=== PATIENT | male | born 1965 | race Caucasian/White ===

== ENCOUNTER 2018-01-25 15:15 | Outpatient (RCR) | payer OTHER, SELFPAY ==
--- NOTE | 2018-01-24 11:38 | PT.OTN ---
Current Diagnoses Cervicalgia (01/24/18) Transition note: On January 22, 2018 our therapy services consisting of Speech, Occupational, and Physical Therapy transitioned from the [employer] electronic documentation system to a new [employer] electronic documentation system.?? All documentation prior to January 22 can be found under [employer] saved data. From January 22 forward all medical record documentation will be in [employer] 6.1.
--- NOTE | 2018-01-24 16:56 | PT.OTN ---
Current Diagnoses Cervicalgia (01/24/18) Physical Therapy Treatment Note PT-OP-C Subjective Start: 01/24/18 07:33 Freq: Status: Active Protocol: Activity Type Activity Date Activity User E-Sign Co-Sign Detail Recorded Client Recorded Date Recorded By Document 01/24/18 16:49 EA [id number] 01/24/18 16:52 EA 01/24/18 16:49 OP-PT Subjective [Patient Comments] -Patient Comments Patient reports that neck is getting better and last session helped him much. -Patient Reported Progress Improving PT-OP-Q Treatments Start: 01/24/18 07:33 Freq: Status: Active Protocol: Activity Type Activity Date Activity User E-Sign Co-Sign Detail Recorded Client Recorded Date Recorded By Document 01/24/18 15:56 EA [id number] 01/24/18 16:07 EA 01/24/18 15:56 Therapeutic Exercises [Supine Exercises] 2 -Supine Exercise Name Neck flexors, SF, rotators AROm exercises -Side bilateral -Reps/Minutes 12 x 2 sets 1 -Supine Exercise Name Traps, LS, side neck flexors passive stretch -Side bilateral -Reps/Minutes 30 SH x 2 each plane [Prone Exercises] 1 -Prone Exercise Name Cervical retraction AROM -Side bilateral -Reps/Minutes 12 x 2 Manual Therapy Treatment [Soft Tissue Mobilization] 1 -Body Location Post neck muscles, LS, Parathoracis, upper scapular border, Traps -Mobilization Type Myofascial Release Sustained Pressure Trigger Point Release -Intensity/Depth Moderate -Body Position Prone PT-OP-R Modalities Start: 01/24/18 07:33 Freq: Status: Active Protocol: Activity Type Activity Date Activity User E-Sign Co-Sign Detail Recorded Client Recorded Date Recorded By Document 01/24/18 16:54 EA [id number] 01/24/18 16:56 EA 01/24/18 16:54 Electric Stimulation [Electric Stimulation] Interferential Current (IFC) -Body Location Bilat traps and LS -Duration (Minutes) 15 -Contraction Type Normal -Patient Position Supine -Combined With Heat/Cold Hot Pack Hot Pack/Cold Pack [Treatment] Hot Pack -Patient Position Supine -Patient Tolerance Good PT-OP-T Assessment and Plan Start: 01/24/18 07:33 Freq: Status: Active Protocol: Activity Type Activity Date Activity User E-Sign Co-Sign Detail Recorded Client Recorded Date Recorded By Document 01/24/18 16:49 EA [id number] 01/24/18 16:52 PRIMO 01/24/18 16:49 Physical Therapy Assessment [Assessment Summary] -Assessment Patient cervical ROM is increased with no pain during neck mobility. Patient is progressing well. I recommended to cont. AROM neck exercises and educated with neck pre- caution. Physical Therapy Plan [Next Visit Focus/Plan] -Next Visit Plan Cont. with current plan and advanced as tolerated.
--- NOTE | 2018-01-24 16:58 | PT.OTN ---
Current Diagnoses Cervicalgia (01/24/18) Physical Therapy Treatment Note PT-OP-C Subjective Start: 01/24/18 07:33 Freq: Status: Active Protocol: Activity Type Activity Date Activity User E-Sign Co-Sign Detail Recorded Client Recorded Date Recorded By Document 01/24/18 16:49 EA [id number] 01/24/18 16:52 EA 01/24/18 16:49 OP-PT Subjective [Patient Comments] -Patient Comments Patient reports that neck is getting better and last session helped him much. -Patient Reported Progress Improving PT-OP-Q Treatments Start: 01/24/18 07:33 Freq: Status: Active Protocol: Activity Type Activity Date Activity User E-Sign Co-Sign Detail Recorded Client Recorded Date Recorded By Document 01/24/18 15:56 EA [id number] 01/24/18 16:07 EA 01/24/18 15:56 Therapeutic Exercises [Supine Exercises] 2 -Supine Exercise Name Neck flexors, SF, rotators AROm exercises -Side bilateral -Reps/Minutes 12 x 2 sets 1 -Supine Exercise Name Traps, LS, side neck flexors passive stretch -Side bilateral -Reps/Minutes 30 SH x 2 each plane [Prone Exercises] 1 -Prone Exercise Name Cervical retraction AROM -Side bilateral -Reps/Minutes 12 x 2 Manual Therapy Treatment [Soft Tissue Mobilization] 1 -Body Location Post neck muscles, LS, Parathoracis, upper scapular border, Traps -Mobilization Type Myofascial Release Sustained Pressure Trigger Point Release -Intensity/Depth Moderate -Body Position Prone PT-OP-R Modalities Start: 01/24/18 07:33 Freq: Status: Active Protocol: Activity Type Activity Date Activity User E-Sign Co-Sign Detail Recorded Client Recorded Date Recorded By Document 01/24/18 16:54 EA [id number] 01/24/18 16:56 EA 01/24/18 16:54 Electric Stimulation [Electric Stimulation] Interferential Current (IFC) -Body Location Bilat traps and LS -Duration (Minutes) 15 -Contraction Type Normal -Patient Position Supine -Combined With Heat/Cold Hot Pack Hot Pack/Cold Pack [Treatment] Hot Pack -Patient Position Supine -Patient Tolerance Good PT-OP-T Assessment and Plan Start: 01/24/18 07:33 Freq: Status: Active Protocol: Activity Type Activity Date Activity User E-Sign Co-Sign Detail Recorded Client Recorded Date Recorded By Document 01/24/18 16:49 EA [id number] 01/24/18 16:52 PRIMO 01/24/18 16:49 Physical Therapy Assessment [Assessment Summary] -Assessment Patient cervical ROM is increased with no pain during neck mobility. Patient is progressing well. I recommended to cont. AROM neck exercises and educated with neck pre- caution. Physical Therapy Plan [Next Visit Focus/Plan] -Next Visit Plan Cont. with current plan and advanced as tolerated.
--- NOTE | 2018-01-25 16:01 | PT.OTN ---
Current Diagnoses Cervicalgia (01/25/18) Physical Therapy Treatment Note PT-OP-C Subjective Start: 01/24/18 07:33 Freq: Status: Active Protocol: Activity Type Activity Date Activity User E-Sign Co-Sign Detail Recorded Client Recorded Date Recorded By Document 01/25/18 15:15 GGD [email or web address] 01/25/18 16:01 GGD 01/25/18 15:15 OP-PT Subjective [Patient Comments] -Patient Comments Pt states less pain and muscle tightness after last visit. -Patient Reported Progress Improving PT-OP-Q Treatments Start: 01/24/18 07:33 Freq: Status: Active Protocol: Activity Type Activity Date Activity User E-Sign Co-Sign Detail Recorded Client Recorded Date Recorded By Document 01/25/18 15:15 GGD [email or web address] 01/25/18 16:01 GGD 01/25/18 15:15 Therapeutic Exercises [Supine Exercises] 2 -Supine Exercise Name Neck flexors, SF, rotators AROm exercises -Side bilateral -Reps/Minutes 12 x 2 sets 1 -Supine Exercise Name Traps, LS, side neck flexors passive stretch -Side bilateral -Reps/Minutes 30 SH x 2 each plane Manual Therapy Treatment [Soft Tissue Mobilization] 1 -Body Location Post neck muscles, LS, Parathoracis, upper scapular border, Traps -Mobilization Type Myofascial Release Sustained Pressure Trigger Point Release -Intensity/Depth Moderate -Body Position Prone PT-OP-R Modalities Start: 01/24/18 07:33 Freq: Status: Active Protocol: Activity Type Activity Date Activity User E-Sign Co-Sign Detail Recorded Client Recorded Date Recorded By Document 01/25/18 15:15 GGD [email or web address] 01/25/18 16:01 GGD 01/25/18 15:15 Electric Stimulation [Electric Stimulation] Interferential Current (IFC) -Body Location Bilat traps and LS -Duration (Minutes) 15 -Contraction Type Normal -Patient Position Hooklying -Combined With Heat/Cold Hot Pack PT-OP-T Assessment and Plan Start: 01/24/18 07:33 Freq: Status: Active Protocol: Activity Type Activity Date Activity User E-Sign Co-Sign Detail Recorded Client Recorded Date Recorded By Document 01/25/18 15:15 GGD [email or web address] 01/25/18 16:01 GGD 01/25/18 15:15 Physical Therapy Assessment [Assessment Summary] -Assessment Decrease tenderness and muscle tone in upper trap, continue tender to right rhomboid. Physical Therapy Plan [Next Visit Focus/Plan] -Next Visit Plan Progress under current plan. HEP for stretching.
--- NOTE | 2018-04-24 16:52 | PT.OPDS ---
Current Diagnoses Cervicalgia (01/25/18) Provider Visit Care Team Role Provider Type Mark Fuentes MD Attending Provider Physician Family Provider Primary Care Provider Specialty: Family Practice Address: [address] [place] [address], [facility] Email: [email or web address] Discharge Summary PT-OP-C Subjective Start: 01/24/18 07:33 Freq: Status: Active Protocol: Document 04/24/18 16:50 EA (Rec: 04/24/18 16:52 EA [id number]) OP-PT Subjective Patient Comments Patient Comments Patient was not seen since the last appointment. PT-OP-T Assessment and Plan Start: 01/24/18 07:33 Freq: Status: Active Protocol: Document 04/24/18 16:50 EA (Rec: 04/24/18 16:52 EA [id number]) Physical Therapy Plan Discharge Physical Therapy Discharge Reasons No Longer Attending PT Discharge Comments Patient requires Doctor's referral if wants to come back to skilled PT.
== END 2018-05-02 10:10 ==
LOC: PHYS 15:15
PROVIDERS: Family Provider Family Medicine; PCP Family Medicine; Visit Provider Family Medicine
DX: M54.2 Cervicalgia (principal)
CPT/HCPCS: 97014; 97110; 97140; G0283

== ENCOUNTER 2018-09-25 16:41 | Emergency (ER) | payer OTHER, SELFPAY ==
--- NOTE | 2018-09-25 16:54 | ED.CHESTPAIN ---
HPI - Chest Pain General Chief Complaint: Chest Pain Stated Complaint: ABNORMAL EKG,SOB,HEAVINESS IN CHEST Time Seen by Provider: 09/25/18 16:54 Source: patient Mode of arrival: ambulatory Limitations: no limitations History of Present Illness HPI narrative: Patient is a 53-year-old male sent over from the clinic for evaluation of chest heaviness and shortness of breath and an abnormal EKG. Patient states that he has not felt well for several weeks now. He states that he has had a cough that is sometimes productive. Has had subjective fevers. He states he has been evaluated in the past for asthma and has an albuterol inhaler in the past but has never been diagnosed with it. Does have a history of high blood pressure. No chest discomfort but just chest tightness. No history of cardiovascular disease. Related Data Home Medications Medication Instructions Recorded Confirmed Levitra 1 tab PO PRN PRN 09/25/18 09/25/18 Mucinex 1 tab PO PRN PRN 09/25/18 09/25/18 allopurinol 300 mg PO DAILY 09/25/18 09/25/18 fluticasone 2 spray NASAL DAILY 09/25/18 09/25/18 lisinopril 10 mg PO DAILY 09/25/18 09/25/18 propranolol 20 mg PO BID 09/25/18 09/25/18 simvastatin [Zocor] 40 mg PO BEDTIME 09/25/18 09/25/18 Previous Rx's Medication Instructions Recorded hydrocodone 5 mg-acetaminophen 325 1 tab PO Q4-6H PRN #30 tab 01/22/18 mg tablet albuterol sulfate [Ventolin HFA] 2 puff INH Q6HP PRN #8 gm 06/10/18 Allergies Allergy/AdvReac Type Severity Reaction Status Date / Time No Known Drug Allergies Allergy Unknown Verified 09/25/18 16:54 Review of Systems Constitutional Reports fatigue and Reports fever(s) ENT Ears, Nose, Mouth, and Throat: Denies vertigo Cardiovascular Reports chest pain (Heaviness in his chest), Denies syncope, Denies pedal edema, Denies edema, Denies irregular heart rhythm, Reports dyspnea, Reports dyspnea on exertion and Denies slow heart rate Respiratory Reports cough, Reports dyspnea and Reports dyspnea on exertion Gastrointestinal Gastrointestinal: Denies abdominal pain, Denies nausea and Denies vomiting Genitourinary Denies dysuria Musculoskeletal Denies myalgias and Denies arthralgias Integumentary/Breasts Denies rash and Denies wounds Neurologic Denies vertigo and Denies syncope Endocrine Reports fatigue Hematologic/Lymphatic Comments: Not on anticoagulation PFSH Medical History Hypertension (Acute) Surgical History Status post arthroscopy Status post arthroscopy Status post tonsillectomy and adenoidectomy Family History Father Heart disease Hypertension High cholesterol Grandmother Cancer Grandmother Heart disease Hypertension High cholesterol Sister Age: 52 Overweight Sister Age: 43 Overweight Social History Smoking Status: Former smoker Exam Initial Vital Signs Initial Vital Signs: Vital Signs Temperature 97.8 F 09/25/18 16:55 Pulse Rate 70 09/25/18 16:55 Respiratory Rate 16 09/25/18 16:55 Blood Pressure 191/85 H 09/25/18 16:55 Pulse Oximetry 99 09/25/18 16:55 Const General: cooperative, well developed, well groomed and No acute distress Orientation: alert, awake and oriented x3 HENMT Head: normal to inspection and normocephalic Resp Effort & Inspection: normal respiratory effort Auscultation: clear to auscultation bilaterally Cardio Rate: regular rate Rhythm: regular rhythm Heart Sounds: no murmurs Pulses: radial pulses present GI Inspection: non-distended Palpation: soft, No firm and No tender Skin Lesions: no lesions Rashes: no rashes Neuro General: alert, awake and oriented x3 Cognition: normal cognition Speech: speech normal Gait: normal gait Motor: muscle tone normal throughout Extrem General: normal to inspection and capillary refill normal Psych Appearance: grossly normal and well kempt Attitude: cooperative Scores HEART Score Heart Score history: Slightly Suspicious Heart Score EKG: Normal Heart Score Age: 45-64 years old Heart Score risk factors: 1-2 risk factors Heart Score troponin: < or = to normal limit Heart Score Total: 2 Course Orders Ordered: ED Orders 09/25/18 16:47 EKG-12 Lead Routine 09/25/18 17:05 B Type Natriuretic Peptide Stat Basic Metabolic Panel Stat Complete Blood Count AUTO DIFF Stat Troponin I Stat 09/25/18 17:08 XR chest 1V Stat Vital Signs - 8 hr 09/25/18 16:55 09/25/18 17:30 09/25/18 18:00 Temperature 97.8 F Pulse Rate 70 60 52 L Respiratory Rate 16 15 17 Blood Pressure 191/85 H Blood Pressure [Right Arm] 150/74 H 150/76 H Pulse Oximetry 99 97 95 MDM - Chest Pain Lab Data Attestation: I reviewed the patient's lab results. Result diagrams: 09/25/18 17:05 09/25/18 17:05 Lab Results 09/25/18 09/25/18 Range/Units 17:05 17:05 WBC 7.6 (4.5-11.0) X10^3/uL RBC 4.98 (4.5-5.9) X10^6/uL Hgb 14.8 (13.5-17.5) g/dL Hct 43.4 (41-53) % MCV 87.2 (80-100) fL MCH 29.7 (26-34) PG MCHC 34.0 (30-36) % RDW 13.7 (11.6-14.8) % Plt Count 221 (150-400) X10^3/uL Neut % (Auto) 54.3 (50-75) % Lymph % (Auto) 33.3 (25-40) % [place] % (Auto) 9.0 (3-14) % Eos % (Auto) 2.6 (2-4) % Baso % (Auto) 0.8 (0-2) % Neut # (Auto) 4100 (6917-9332) /uL Sodium 139 (137-145) mmol/L Potassium 4.1 (3.4-5.1) mmol/L Chloride 104 (98-107) mmol/L Carbon Dioxide 25 (22-32) mmol/L BUN 14 (9-20) mg/dL Creatinine 0.90 (0.66-1.25) mg/dL Estimated GFR > 60.0 (>60) mL/min BUN/Creatinine Ratio 15.6 (6-22) Glucose 102 H (70-100) mg/dL Calcium 9.0 (8.4-10.2) mg/dL Troponin I < 0.012 (0.01-0.034) ng/mL B-Natriuretic Peptide < 100 (<100) Imaging Data Chest x-ray: Radiologist's impression: PROCEDURE: XR CHEST 1V INDICATIONS: Chest pain TECHNIQUE: One view of the chest was acquired. COMPARISON: [facility], CHEST 2 VIEW, 09/09/2015, 9:36[facility], CR, CHEST 2 VIEW, 09/15/2014, 10:18. FINDINGS: Surgical changes and devices: None. Lungs and pleura: No pleural effusions or pneumothorax. Lungs are difficult to accurately assess due to patient lordotic positioning and prominently reduced inspiratory volume. Mediastinum: Mediastinal contours appear normal. Heart size is normal. Bones and chest wall: No suspicious bony lesions. Overlying soft tissues appear unremarkable. IMPRESSION: Reduced inspiration, lordotic positioning, a definite source of chest pain is not seen but the study is quite limited as noted. Dictated by: Nic Bradshaw M.D. on 09/25/2018 at 17:29 ECG Data Attestation: I personally reviewed and interpreted this ECG as follows: Prior ECG tracings: not available for review Interpretation: Sinus rhythm Frequent PVCs Ventricular rate is 70 Normal QRS Normal QTC Right bundle branch block Comparison EKG dated 11/02/2018 1606 hr Unchanged except no PVCs on this EKG MDM Narrative Medical decision making narrative: Chest x-ray is unremarkable. Troponin negative. This troponin was drawn greater than 6 hr after the onset of his symptoms. Patient is low risk by heart score. Nonischemic EKG. Unsure the exact etiology of his symptoms however does not appear to be cardiac. I informed him he needed to contact his primary care provider to discuss a stress test. He was given return precautions. No signs of pneumonia. Will hold on any antibiotics. He and his was at bedside expressed understanding and agreement with plan Discharge Plan Departure Patient Disposition: Home Clinical Impression: Atypical chest pain Instructions: DI for Atypical Chest Pain Activity Restrictions/Additional Instructions: Recommend you contact your primary care doctor to discuss the indications for a stress test. Return to the emergency department for any new or worsening symptoms Prescriptions: No Action albuterol sulfate [Ventolin HFA] 90 mcg/actuation HFA aerosol inhaler 2 puff INH Q6HP PRNQty: 8 RF: 11 hydrocodone-acetaminophen [[place]] 5-325 mg tablet 1 tab PO Q4-6H PRN (Reason: neck pain) Qty: 30 RF: 0 Levitra 1 tab PO PRN PRN (Reason: Erectile Dysfunction) RF: 0 Mucinex 1 tab PO PRN PRN (Reason: Congestion) RF: 0 simvastatin [Zocor] 40 mg tablet 40 mg PO BEDTIME RF: 0 lisinopril 10 mg tablet 10 mg PO DAILY RF: 0 allopurinol 300 mg tablet 300 mg PO DAILY RF: 0 propranolol 20 MG tablet 20 mg PO BID RF: 0 fluticasone 50 mcg/actuation spray,suspension 2 spray NASAL DAILY RF: 0
[2018-09-25 16:55] VITALS: BP 191/85; PULSE 70; RESP 16; TEMP 36.6; O2SAT 99; BMI 39.3
--- NOTE | 2018-09-25 17:08 | DI.RAD.S_ITS ---
PROCEDURE: XR CHEST 1V INDICATIONS: Chest pain TECHNIQUE: One view of the chest was acquired. COMPARISON: [facility], CHEST 2 VIEW, 09/09/2015, 9:36. [facility], CHEST 2 VIEW, 09/15/2014, 10:18. FINDINGS: Surgical changes and devices: None. Lungs and pleura: No pleural effusions or pneumothorax. Lungs are difficult to accurately assess due to patient lordotic positioning and prominently reduced inspiratory volume. Mediastinum: Mediastinal contours appear normal. Heart size is normal. Bones and chest wall: No suspicious bony lesions. Overlying soft tissues appear unremarkable. IMPRESSION: Reduced inspiration, lordotic positioning, a definite source of chest pain is not seen but the study is quite limited as noted. Dictated by: Nic Bradshaw M.D. on 09/25/2018 at 17:29 Approved by: Nic Bradshaw M.D. on 09/25/2018 at 17:30
[2018-09-25 17:17] LABS: Add Manual Diff / Slide Review NO; Basophils Percent Auto 0.8 % (0-2); Eosinophils Percent Auto 2.6 % (2-4); Hematocrit 43.4 % (41-53); Hemoglobin 14.8 g/dL (13.5-17.5); Lymphocytes Percent Auto 33.3 % (25-40); Mean Corpuscular Hemoglobin 29.7 PG (26-34); Mean Corpuscular Volume 87.2 fL (80-100); Neutrophils Absolute Auto 4100 /uL (1500-7000); Neutrophils Percent Auto 54.3 % (50-75); Platelet Count 221 X10^3/uL (150-400); Red Blood Cell Count 4.98 X10^6/uL (4.5-5.9); Red Cell Distribution Width 13.7 % (11.6-14.8); White Blood Cell Count 7.6 X10^3/uL (4.5-11.0)
[2018-09-25 17:28] LABS: BUN Creatinine Ratio 15.6 (6-22); Blood Urea Nitrogen 14 mg/dL (9-20); Carbon Dioxide 25 mmol/L (22-32); Chloride 104 mmol/L (98-107); Estimated Glomerular Filt Rate > 60.0 mL/min (>60); Glucose 102 mg/dL (70-100); HEMOLYSIS < 15 (0-50); Potassium 4.1 mmol/L (3.4-5.1); Sodium 139 mmol/L (137-145)
[2018-09-25 17:30] VITALS: BP 150/74; PULSE 60; RESP 15; O2SAT 97
[2018-09-25 17:41] LABS: Troponin I < 0.012 ng/mL (0.01-0.034)
[2018-09-25 17:48] LABS: B Type Natriuretic Peptide < 100 (<100)
[2018-09-25 18:00] VITALS: BP 150/76; PULSE 52; RESP 17; O2SAT 95
[2018-09-25 18:30] VITALS: BP 147/81; PULSE 57; RESP 13; O2SAT 97
== END 2018-09-25 18:43 | disposition home or self-care (01) ==
PROVIDERS: Emergency Provider Emergency Medicine; Family Provider Family Medicine; PCP Family Medicine
DX: R07.89 Other chest pain (principal)
CPT/HCPCS: 36591; 71045; 80048; 83880; 84484; 85025; 93005; 99283; 99285

== ENCOUNTER → 2018-10-07 14:45 | Outpatient (CLI) | payer OTHER, SELFPAY ==
--- NOTE | 2018-10-07 14:46 | DI.ECHO.S_ITS ---
[facility] +---------+ : : [address] [place] : : : : [id number] : : : : Phone: [phone] Echocardiogram Report + + :Name: SHARON HARMON Study Date: 10/07/2018 Height: 72 in : :[facility] Exam Location: [facility] Weight: 300 lb : : Gender: Male BSA: 2.5 m2 : :: 1965 Age: 53 yrs BP: 150/80 mmHg: :Reason For Study: SOB : :Ordering Physician: Dr. Flores : :Alfredo Performed By: La Alcantar : :Referring: MAMIE DUMONT : + + Interpretation Summary Normal both left and right ventricle size and function. The ejection fraction is 60-65%. Mildly dilated left atrium. No valvular abnormality. Procedure: A two-dimensional transthoracic echocardiogram with color flow and Doppler was performed. The study quality was technically adequate. There is no prior echocardiogram noted for this patient. The patient was in normal sinus rhythm during the exam. Left Ventricle: The left ventricle is normal in size, wall thickness, and systolic function without any focal wall motion abnormalities. The ejection fraction is estimated to be 60-65%. There are no obvious focal wall motion abnormalities noted but poor endocardial definition reduces the sensitivity for the detection of such. Diastolic parameters suggest probable normal left ventricular diastolic function and normal filling pressures. Right Ventricle: The right ventricle is normal in size and function. Atria: The left atrium is mildly dilated. The right atrium is normal in size. There is no Doppler evidence for an interatrial shunt. Mitral Valve: The mitral valve is normal. There is trace mitral regurgitation. Aortic Valve: The aortic valve is normal in structure and function. No aortic regurgitation is present. Tricuspid Valve: The tricuspid valve is normal. There is mild tricuspid regurgitation. Right ventricular systolic pressure is estimated to be 25 mmHg plus the clinically estimated CVP which cannot be estimated on this exam. Pulmonic Valve: The pulmonic valve is not well seen, but is grossly normal. There is a trace or physiologic amount of pulmonic regurgitation. Great Vessels: The aortic root is normal size. The ascending aorta is normal in size. The aortic arch is normal in size. The pulmonary is not well visualized. The inferior vena cava was not visualized. Pericardium/ Pleura There is no pericardial effusion. There is no pleural effusion. MMode/2D Measurements & Calculations LVIDd: 5.8 cm LVOT diam: 2.4 cm LVIDs: 4.1 cm Ao root diam: 3.2 cm FS: 30.5 % asc Aorta Diam: 3.1 cm EPSS: 0.40 cm Ao Arch Diam (Prox Trans): 2.9 cm IVSd: 0.83 cm LVPWd: 0.92 cm LV naranjo. diameter/BSA (cm/m^2): 2.3 LV sys. diameter/BSA (cm/m^2): 1.6 LA A2 area: 19.6 cm2 RA long axis: 4.7 cm LA A4 area: 21.3 cm2 RA area: 20.3 cm2 LA length (vol): 5.5 cm RA vol: 74.3 ml LA vol: 64.1 ml RA : 29.3 ml/m2 LA vol index: 25.3 ml/m2 IVC diam: 1.9 cm RVD1 (basal): 4.8 cm RVD2 (mid): 4.6 cm TAPSE: 2.3 cm Doppler Measurements & Calculations Ao V2 max: 176.2 cm/sec LVOT Max David: 103.7 cm/sec Ao V2 mean: 129.2 cm/sec LV V1 max P.3 mmHg Ao max P.4 mmHg LV V1 VTI: 19.1 cm Ao mean P.4 mmHg PAMELA(I,D): 2.7 cm2 Ao V2 VTI: 31.5 cm PAMELA(V,D): 2.6 cm2 sev ratio: 0.60 PAMELA indexed to BSA (cm^2/m^2): 1.1 MV E max david: 64.4 cm/sec TR max david: 251.9 cm/sec MV A max david: 58.7 cm/sec TR max P.4 mmHg MV E/A: 1.1 PA V2 max: 77.6 cm/sec Med Peak E' David: 5.2 cm/sec PA V2 mean: 53.4 cm/sec E/E' med: 12.5 PA mean P.3 mmHg Lat Peak E' David: 8.3 cm/sec PA pr(Accel): 34.1 mmHg E/E' lat: 7.7 E/e' average: 10.1 MV dec time: 0.19 sec SV(LVOT): 84.4 ml Electronically signed by: Miki Laguna on Reading Physician:10/07/2018 04:08 PM
== END ==
PROVIDERS: PCP Family Medicine; Visit Provider Family Medicine
DX: I07.1 Rheumatic tricuspid insufficiency (principal); R06.02 Shortness of breath; R07.89 Other chest pain; I45.10 Unspecified right bundle-branch block
CPT/HCPCS: 93306

== ENCOUNTER → 2018-10-24 13:41 | Outpatient (CLI) | payer OTHER, SELFPAY ==
--- NOTE | 2018-10-24 11:00 | DI.NM.S_ITS ---
PATIENT NAME: SHARON HARMON : 1965 EXAM DATE: 10/24/2018 14:25 ORD. DRNile: DR. MAMIE DUMONT M.D. CC: MODALITY: NM PATIENT TYPE: Out CONTRAST MEDIA: STATION ID: [id number] FLUORO TIME: PROCEDURE: NM JAYME PERF SPECT REST & STR Rest and exercise myocardial perfusion SPECT with gated imaging and ejection fraction RADIOPHARMACEUTICAL: 24.8 mCi Tc-99m sestamibi IV at rest and 26.1 mCi Tc- 99m sestamibi IV at peak exercise. A 0-cit-[id number] was performed. INDICATIONS: atypical chest pain TECHNIQUE: Radiopharmaceutical was injected at peak stress test, and also at rest. SPECT images were obtained. SPECT myocardial perfusion images were displayed in short axis, horizontal long axis, and vertical long axis views. Gated images were reviewed using [employer] software. COMPARISON: None. CARDIAC STRESS: A standard Preet treadmill exercise tolerance test was performed by the patient under the supervision of an attending staff. The patient exercised for 7 minutes and 4 seconds; functional aerobic impairment (SAMM) is +20 %. Hemodynamic data: There is hypertensive blood pressure and normal heart rate response to exercise stress. Patient achieved 92% of maximum predicted heart rate at peak exercise. Symptoms: Patient had chest tightness. EKG: No diagnostic EKG changes of ischemia; no ectopy. FINDINGS: Raw data: There is good myocardial labeling by radiotracer. No significant motion artifacts. Ugsw-ii-aemnb ratio is 0.40 (normal is less than 0.38 for sestamibi tracer, and less than 0.50 for thallium tracer). Left ventricle function: Gated images demonstrate normal left ventricle wall thickening. No segmental wall motion abnormality. No transient ischemic dilation ; TID is Continued Report - Page 2 of 2 PATIENT NAME: SHARON HARMON : 1965 EXAM DATE: 10/24/2018 14:25 ORD. : DR. MAMIE DUMONT M.D. CC: MODALITY: CT PATIENT TYPE: Out CONTRAST MEDIA: STATION ID: [id number] FLUORO TIME: 0.67 (normal less than 1.3). The left ventricle resting end-diastolic volume is 136 mL. Left ventricle stress ejection fraction is 71% ; normal values are above 45%. Myocardial perfusion: There is a small defct in the inferior apical wall, both at rest and stress and persists on prone imaging. This is improved on stress and has normal wall motion, conssitent with artefact. Otherwise normal distribution of activity in the left and ventricular myocardium. No other fixed or reversible perfusion defects. IMPRESSION: -Negative perfusion study for ischemia or scar. -Small perfusion defect as described above is consistent with artefact and was described on prior perfusion study on 09/10/2008. -Poor exercise capcacity. -Hypertensive response to exercise. -Chest discomfort with exercise. Dictated by: Sudhakar Cline on 10/25/2018 at 16:29 Approved by: Sudhakar Cline on 10/25/2018 at 16:36
--- NOTE | 2018-10-24 14:53 | P.PCN_ITS ---
Cardiac Stress Test Report Referral & Results Date Patient Seen: 10/24/18 Requesting provider: Mark Fuentes Indication: Chest pain Rest ECG: Right bundle branch block, old Procedure Note: Today following both written and verbal informed consent the patient was exercised according to a standard Preet protocol patient went for a total of 7 min 4 sec achieving a maximum heart rate of 152 maximum systolic blood pressure of 240. This is approximately 10.1 METS. Exercise was terminated at this point because of dyspnea and tightness in the chest and targets were med as well. Patient was also given Cardiolite through a previously started Hep-Lock IV by the nuclear fuels research engineer approximately 1 minute prior to the cessation of exercise. With exercise patient did have some nonspecific ST-T segment changes in the inferior leads as well as laterally that are difficult to interpret in the face of resting right bundle branch block Normal heart rate response to exercise but hypertensive at peak Functional aerobic impairment rates 20% on the sedentary scale Impression: Nonspecific ST-T segment changes with exercise, unclear if ischemic Perfusion imaging will be reported separately Please note: Actual ECG tracings can be found in the PACS system.
== END ==
PROVIDERS: PCP Family Medicine; Visit Provider Family Medicine
DX: R07.89 Other chest pain (principal); I45.10 Unspecified right bundle-branch block
CPT/HCPCS: 78452; 93016; 93017; 93018; A9502

== ENCOUNTER → 2019-01-07 08:56 | Outpatient (CLI) | payer OTHER, SELFPAY ==
[2019-01-07 10:34] LABS: Blood Urea Nitrogen 18 mg/dL (9-20); Carbon Dioxide 27 mmol/L (22-32); Chloride 104 mmol/L (98-107); Cholesterol 166 mg/dL (140-199); Estimated Glomerular Filt Rate > 60.0 mL/min (>60); Glucose 127 mg/dL (70-100); HDL Cholesterol 39 mg/dL (40-60); HEMOLYSIS < 15 (0-50); LDL Cholesterol Calculated 99 mg/dL (<100); Potassium 4.1 mmol/L (3.4-5.1); Sodium 140 mmol/L (137-145); Triglycerides 139 mg/dL (35-150)
== END ==
PROVIDERS: PCP Family Medicine; Visit Provider Family Medicine
DX: E78.2 Mixed hyperlipidemia (principal)
CPT/HCPCS: 36415; 80048; 80061

== ENCOUNTER 2019-02-06 14:57 | Emergency (ER) | payer OTHER, SELFPAY ==
[2019-02-06 15:00] VITALS: BP 191/93; PULSE 64; RESP 20; TEMP 35.9; O2SAT 97; BMI 40.0
--- NOTE | 2019-02-06 15:29 | PC.NURSE ---
Pt requesting pain meds,Provider Raymond alba
--- NOTE | 2019-02-06 15:44 | DI.CT.S_ITS ---
PROCEDURE: CT KIDNEY URETER BLADDER (KUB) INDICATIONS: Sudden R flank and RLQ tenderness TECHNIQUE: Noncontrast 5 mm thick sections acquired from the diaphragms to the symphysis. 5 mm thick coronal and sagittal reformats were then performed. For radiation dose reduction, the following was used: automated exposure control, adjustment of mA and/or kV according to patient size. COMPARISON: [facility], , L-SPINE MINIMUM 4 VIEWS, 02/24/2015, 11:23. FINDINGS: Image quality: Excellent. Lung bases: Lung bases are clear. Heart size is normal. Urinary system: There are bilateral renal stones. There is a 7 mm stone within the right renal pelvis with streaky density 471 HU, probably a uric acid stone. A 3 mm stone is present in the inferior pole of the left renal pelvis. There is a 4 mm stone at the right ureterovesical junction causing is mild right hydronephrosis. Right perinephric stranding and periureteral stranding. Both kidneys are normal in size. Both ureters appear in expected courses. Bladder is semicontracted. Bladder wall thickness is normal; no calcified bladder stones. Other solid organs: There is hepatic steatosis. A 7 mm indeterminate low density nodule in the left hepatic lobe is pulmonary a cyst. Liver is normal in size. Gallbladder is normal. Pancreas is normal in contours. Spleen is normal in size. No adrenal nodules. Peritoneum and bowel: Unenhanced bowel loops demonstrate normal wall thickness and caliber. The appendix is normal. No free fluid or air. Nodes and vessels: No retroperitoneal or mesenteric adenopathy by size criteria. Aorta and inferior vena cava are normal in caliber. Abdominal wall: Tiny fat-containing umbilical hernia is noted. Pelvis: No free pelvic fluid. No inguinal hernias or adenopathy. Bones: No suspicious bony lesions. No vertebral body compression fractures. There is degenerative disc and facet disease in the lower lumbar spine. IMPRESSION: 1. There is a 4 mm obstructive stone at the right ureterovesical junction causing mild right hydronephrosis and hydroureter. 2. Bilateral nonobstructive renal stones. Dictated by: Aggie Mcconnell M.D. on 02/06/2019 at 16:13 Approved by: Aggie Mcconnell M.D. on 02/06/2019 at 16:22
[2019-02-06 15:48] LABS: Add Manual Diff / Slide Review NO; Basophils Absolute Auto 100 /uL (0-100); Basophils Percent Auto 0.6 % (0-2); Eosinophils Absolute Auto 100 /uL (0-450); Eosinophils Percent Auto 1.3 % (2-4); Hematocrit 47.5 % (41-53); Hemoglobin 16.2 g/dL (13.5-17.5); Lymphocytes Absolute Auto 2100 /uL (1100-4500); Lymphocytes Percent Auto 19.5 % (25-40); Mean Corpuscular HGB Conc 34.2 % (30-36); Mean Corpuscular Hemoglobin 29.6 PG (26-34); Mean Corpuscular Volume 86.7 fL (80-100); Monocytes Absolute Auto 800 /uL (0-900); Monocytes Percent Auto 7.4 % (3-14); Neutrophils Absolute Auto 7700 /uL (1500-7000); Neutrophils Percent Auto 71.2 % (50-75); Platelet Count 244 X10^3/uL (150-400); Red Blood Cell Count 5.48 X10^6/uL (4.5-5.9); Red Cell Distribution Width 13.5 % (11.6-14.8); White Blood Cell Count 10.8 X10^3/uL (4.5-11.0)
--- NOTE | 2019-02-06 15:49 | ED_ITS ---
HPI - Male Genitourinary <Jenny ChoudharyJESÚS mckeon - Last Filed: 02/06/19 22:07> General Chief complaint: Urogenital-Male Stated complaint: states pain in groin radiating to his back Time Seen by Provider: 02/06/19 15:16 Source: patient and family Mode of arrival: ambulatory Limitations: no limitations History of Present Illness HPI Narrative: 54yo male with PMH of difficult to control HTN, HLD, prediabetes, and gout presents to the ED with his daughter for sudden onset of 9/10 cramping right lower abdominal pain that radiates to right groin and right flank. Pain started 2 hours ago and is worse with movement and lying down, better with standing. Associated nausea and cold sweats. Denies fevers, chest pain, SOB, orthopnea, vomiting, changes in bowels, leg swelling, dysuria. Denies history of renal calculi or gallstones, consumes multiple energy drinks a day. Biological daughter reports having multiple renal calculi. Related Data Home Medications Medication Instructions Recorded Confirmed Levitra 1 tab PO PRN PRN 09/25/18 02/06/19 Mucinex 1 tab PO PRN PRN 09/25/18 02/06/19 albuterol sulfate [Ventolin HFA] 2 puff INH Q6HP PRN 02/06/19 02/06/19 amlodipine 5 mg PO DAILY 02/06/19 02/06/19 losartan 50 mg PO BID 02/06/19 02/06/19 Previous Rx's Medication Instructions Recorded allopurinol 300 mg tablet 300 mg PO DAILY #90 tab 01/09/19 atorvastatin 20 mg tablet 20 mg PO DAILY #90 tab 01/09/19 beclomethasone diprop 80 1 puff INHALATION Q12H #10.6 gram 01/09/19 mcg/actuation HFA breath activated aerosol fluticasone propionate 50 2 spray NASAL DAILY #9.9 gram 01/09/19 mcg/actuation nasal spray,suspension propranolol 20 mg tablet 20 mg PO BID #180 tab 01/09/19 hydrocodone-acetaminophen [[place]] 1 tab PO Q4-6H PRN #10 tab 02/06/19 ondansetron 4 mg PO Q6-8H PRN #10 tab 02/06/19 tamsulosin 0.4 mg PO DAILY #10 cap 02/06/19 Allergies Allergy/AdvReac Type Severity Reaction Status Date / Time No Known Drug Allergies Allergy Unknown Verified 01/09/19 11:06 Review of Systems <JESÚS Schreiber - Last Filed: 02/06/19 22:07> Constitutional Denies anorexia, Denies body ache(s), Denies chills, Reports excessive sweating, Denies fatigue and Denies fever(s) Eyes Denies change in vision and Denies eye discharge ENT Ears, Nose, Mouth, and Throat: Denies neck pain and Denies sore throat Cardiovascular Denies chest pain, Denies irregular heart rhythm, Denies lightheadedness, Denies palpitations, Denies dyspnea, Denies dyspnea on exertion and Denies orthopnea Respiratory Denies cough, Denies dyspnea, Denies dyspnea on exertion and Denies wheezing Gastrointestinal Gastrointestinal: Denies abdominal pain, Denies change in bowel habits, Denies heartburn, Denies diarrhea, Denies loose stools, Reports nausea and Denies vomiting Genitourinary Denies hematuria, Denies difficulty urinating, Reports flank pain (Right radiating to groin), Denies penile discharge, Denies scrotal swelling, Denies urinary frequency, Denies urinary hesitancy, Denies urinary incontinence and Denies urinary urgency Musculoskeletal Denies myalgias and Denies neck pain Integumentary/Breasts Denies pruritus, Denies erythema, Denies rash, Denies skin pain, Denies wounds and Denies jaundice Neurologic Denies confusion Psychiatric Denies anxiety, Denies confusion, Denies depression, Denies homicidal ideation and Denies suicidal ideation Endocrine Reports excessive sweating, Denies fatigue and Denies palpitations Hematologic/Lymphatic Denies easy bruising Allergic/Immunologic Denies wheezing PFSH <JESÚS Schreiber - Last Filed: 02/06/19 22:07> Medical History (Updated 02/06/19 @ 18:43 by JESÚS Schreiber) Gout (Chronic) Hypercholesterolemia (Chronic) Hypertension (Chronic) Surgical History Status post arthroscopy Status post arthroscopy Status post tonsillectomy and adenoidectomy Family History Father Heart disease Hypertension High cholesterol Grandmother Cancer Grandmother Heart disease Hypertension High cholesterol Sister Age: 53 Overweight Sister Age: 44 Overweight Social History Smoking Status: Former smoker Family History Father Heart disease Hypertension High cholesterol Grandmother Cancer Grandmother Heart disease Hypertension High cholesterol Sister Age: 53 Overweight Sister Age: 44 Overweight Social History Smoking Status: Former smoker Exam <JESÚS Schreiber - Last Filed: 02/06/19 22:07> Initial Vital Signs Initial Vital Signs: Vital Signs Temperature 96.7 F L 02/06/19 15:00 Pulse Rate 64 02/06/19 15:00 Respiratory Rate 20 02/06/19 15:00 Blood Pressure 191/93 H 02/06/19 15:00 Pulse Oximetry 97 02/06/19 15:00 Const General: cooperative, well developed and well groomed Nutritional Appearance: well nourished Orientation: alert, awake, oriented x3 and not confused [facility] Head: normocephalic and atraumatic Nose: external nose normal and No nasal discharge Face and sinus: sinuses nontender, face symmetric, no sinus tenderness and No dry mucous membranes Mouth: oral mucosae normal and moist mucous membranes Teeth and gingiva: dentition normal Throat: tonsils normal and uvula midline Eyes General: appearance normal, both eyes and all related structures Eyelids: eyelids normal Conjunctivae: conjunctivae normal Sclera: sclerae normal Neck Neck: normal visual inspection and trachea midline Lymphatic: No lymphedema Chest Chest: normal inspection of the chest Resp Effort & Inspection: normal respiratory effort, able to speak in complete sentences, no cough, no respiratory distress and no use of accessory muscles Auscultation: clear to auscultation bilaterally, no rales, no rhonchi and no wheezes Cardio Rate: regular rate Rhythm: regular rhythm Heart Sounds: S1 normal, S2 normal, no click, no gallops, no murmurs and no rubs Pulses: normal peripheral pulses GI Inspection: normal to inspection, non-distended and obesity Palpation: soft (Slight tenderness is deep RLQ palpation), no hepatosplenomegaly, No guarding, No hepatomegaly, No mass, No pulsatile mass, No tender and No ascites Auscultation: normal bowel sounds General: CVA tenderness (Slight right CVA tenderness) Back/Spine/Pelvis Back: CVA tenderness right Cervical Spine: cervical ROM normal and No pain with cervical ROM Thoracic/Lumbar Spine: thoracic and lumbar spine normal to inspection Skin General: no rashes or lesions noted, No jaundice and No petechiae Neuro General: alert, oriented x3, gait normal and no focal motor deficits Speech: speech normal Extrem General: full ROM, no clubbing, cyanosis or edema, no pedal edema and no calf tenderness Psych Appearance: well kempt Mental Status: mental status grossly normal Attitude: cooperative Thought Content: normal and suicidality Judgment: judgment good <Dalia Torres DO - Last Filed: 02/07/19 08:33> Initial Vital Signs Initial Vital Signs: Vital Signs Temperature 96.7 F L 02/06/19 15:00 Pulse Rate 64 02/06/19 15:00 Respiratory Rate 20 02/06/19 15:00 Blood Pressure 191/93 H 02/06/19 15:00 Pulse Oximetry 97 02/06/19 15:00 Course <JESÚS Schreiber - Last Filed: 02/06/19 22:07> Course Narrative: Pain controlled with toradol and NS, down to 3/10. Patient able to urinate without discomfort. Orders Ordered: Discontinued Medications Sodium Chloride (Normal Saline 0.9%) 1,000 mls @ 150 mls/hr IV CONT CRISTINO Sodium Chloride (Normal Saline 0.9%) 1,000 mls @ 1,000 mls/hr IV BOLUS ONE Stop: 02/06/19 16:41 Last Infusion: 02/06/19 17:35 Dose: 0 mls/hr Admin: 02/06/19 15:59 Dose: 1,000 mls/hr Ketorolac Tromethamine (Toradol) 30 mg IV NOW ONE Stop: 02/06/19 15:40 Last Admin: 02/06/19 15:58 Dose: 30 mg Ondansetron HCl (Zofran) 4 mg IV NOW ONE Stop: 02/06/19 15:40 Last Admin: 02/06/19 15:58 Dose: 4 mg Vital Signs - 8 hr 02/06/19 15:00 02/06/19 17:00 02/06/19 17:38 Temperature 96.7 F L Pulse Rate 64 76 73 Respiratory Rate 20 18 18 Blood Pressure 191/93 H Blood Pressure [Right Arm] 148/76 H 144/72 H Pulse Oximetry 97 96 99 <Dalia Torres DO - Last Filed: 02/07/19 08:33> Orders Ordered: Discontinued Medications Sodium Chloride (Normal Saline 0.9%) 1,000 mls @ 150 mls/hr IV CONT CRISTINO Sodium Chloride (Normal Saline 0.9%) 1,000 mls @ 1,000 mls/hr IV BOLUS ONE Stop: 02/06/19 16:41 Last Infusion: 02/06/19 17:35 Dose: 0 mls/hr Admin: 02/06/19 15:59 Dose: 1,000 mls/hr Ketorolac Tromethamine (Toradol) 30 mg IV NOW ONE Stop: 02/06/19 15:40 Last Admin: 02/06/19 15:58 Dose: 30 mg Ondansetron HCl (Zofran) 4 mg IV NOW ONE Stop: 02/06/19 15:40 Last Admin: 02/06/19 15:58 Dose: 4 mg Vital Signs - 8 hr 02/06/19 15:00 02/06/19 17:00 02/06/19 17:38 Temperature 96.7 F L Pulse Rate 64 76 73 Respiratory Rate 20 18 18 Blood Pressure 191/93 H Blood Pressure [Right Arm] 148/76 H 144/72 H Pulse Oximetry 97 96 99 MDM - Male Genitourinary <JESÚS Schreiber - Last Filed: 02/06/19 22:07> Differential Diagnosis Likely other Medical Records Attestation: I reviewed the patient's medical records. Lab Data Attestation: I reviewed the patient's lab results. No evidence of infection or renal failure. Result diagrams: 02/06/19 15:40 02/06/19 15:40 Lab Results 02/06/19 02/06/19 02/06/19 Range/Units 15:35 15:40 15:40 WBC 10.8 (4.5-11.0) X10^3/uL RBC 5.48 (4.5-5.9) X10^6/uL Hgb 16.2 (13.5-17.5) g/dL Hct 47.5 (41-53) % MCV 86.7 (80-100) fL MCH 29.6 (26-34) PG MCHC 34.2 (30-36) % RDW 13.5 (11.6-14.8) % Plt Count 244 (150-400) X10^3/uL Neut % (Auto) 71.2 (50-75) % Lymph % (Auto) 19.5 L (25-40) % [place] % (Auto) 7.4 (3-14) % Eos % (Auto) 1.3 L (2-4) % Baso % (Auto) 0.6 (0-2) % Neut # (Auto) 7700 H (6513-8607) /uL Lymph # (Auto) 2100 (8254-0820) /uL [place] # (Auto) 800 (0-900) /uL Eos # (Auto) 100 (0-450) /uL Baso # (Auto) 100 (0-100) /uL Sodium 139 (137-145) mmol/L Potassium 4.5 (3.4-5.1) mmol/L Chloride 103 (98-107) mmol/L Carbon Dioxide 23 (22-32) mmol/L BUN 16 (9-20) mg/dL Creatinine 1.00 (0.66-1.25) mg/dL Estimated GFR > 60.0 (>60) mL/min BUN/Creatinine Ratio 16.0 (6-22) Glucose 136 H (70-100) mg/dL Calcium 9.8 (8.4-10.2) mg/dL Total Bilirubin 0.8 (0.2-1.3) mg/dL AST 34 (17-59) IU/L ALT 61 (21-72) IU/L Alkaline Phosphatase 99 (38-126) U/L Total Protein 8.3 H (6.3-8.2) g/dL Albumin 4.9 (3.5-5.0) g/dL Globulin 3.4 (1.7-4.1) g/dL Albumin/Globulin Ratio 1.4 (1.0-2.8) Lipase 66 (23-300) U/L Urine RBC 30-100/hpf H (0-5/HPF) Urine WBC 1-5/hpf (0-5/HPF) Ur Squamous Epith Cells 0-1 /hpf (0-5/HPF) Amorphous Sediment 2+ Urine Bacteria None seen (None) Urine Mucus 2+ H (Negative) Ur Culture Indicated? Cult not indicated Urine Dip Bedside Urine Glucose Negative Bedside Urine Bilirubin - Negative Bedside Urine Ketone - Negative Urine Specific [place] 1.030 Bedside Urine Occult Blood +++ Bedside Urine pH 5.0 Bedside Urine Protein +/- 15 Bedside Urine Urobilinogen - Negative Bedside Urine Nitrite - Negative Bedside Urine Leukocytes - Negative Esterase Imaging Data CT KUB : Radiologist's impression: Patient: Luke Lao MR#: [id number] : 1965 Acct:[id number] Age/Sex: 54 / M Date of Service: 02/06/19 Loc: ED Accession Number: [id number] Procedure: CT kidney ureter bladder (KUB) Ordering Provider: Jenny Andrade PROCEDURE: CT KIDNEY URETER BLADDER (KUB) INDICATIONS: Sudden R flank and RLQ tenderness TECHNIQUE: Noncontrast 5 mm thick sections acquired from the diaphragms to the symphysis. 5 mm thick coronal and sagittal reformats were then performed. For radiation dose reduction, the following was used: automated exposure control, adjustment of mA and/or kV according to patient size. COMPARISON: [facility], , L-SPINE MINIMUM 4 VIEWS, 02/24/2015, 11:23. FINDINGS: Image quality: Excellent. Lung bases: Lung bases are clear. Heart size is normal. Urinary system: There are bilateral renal stones. There is a 7 mm stone within the right renal pelvis with streaky density 471 HU, probably a uric acid stone. A 3 mm stone is present in the inferior pole of the left renal pelvis. There is a 4 mm stone at the right ureterovesical junction causing is mild right hydronephrosis. Right perinephric stranding and periureteral stranding. Both kidneys are normal in size. Both ureters appear in expected courses. Bladder is semicontracted. Bladder wall thickness is normal; no calcified bladder stones. Other solid organs: There is hepatic steatosis. A 7 mm indeterminate low density nodule in the left hepatic lobe is pulmonary a cyst. Liver is normal in size. Gallbladder is normal. Pancreas is normal in contours. Spleen is normal in size. No adrenal nodules. Peritoneum and bowel: Unenhanced bowel loops demonstrate normal wall thickness and caliber. The appendix is normal. No free fluid or air. Nodes and vessels: No retroperitoneal or mesenteric adenopathy by size criteria. Aorta and inferior vena cava are normal in caliber. Abdominal wall: Tiny fat-containing umbilical hernia is noted. Pelvis: No free pelvic fluid. No inguinal hernias or adenopathy. Bones: No suspicious bony lesions. No vertebral body compression fractures. There is degenerative disc and facet disease in the lower lumbar spine. IMPRESSION: 1. There is a 4 mm obstructive stone at the right ureterovesical junction causing mild right hydronephrosis and hydroureter. 2. Bilateral nonobstructive renal stones. Dictated by: Aggie Mcconnell M.D. on 02/06/2019 at 16:13 Approved by: Aggie Mcconnell M.D. on 02/06/2019 at 16:22 MDM Narrative Medical decision making narrative: Most likely renal calculi causing pain due to presence of obstructing stone on CT, blood in urine, relief with IV fluids and toradol. Less likely bacterial infection due to lack of bacteria in urine, normal WBC, and lack of fever. Less likely gallbladder or pancreatic involvement due to normal decreased pain and normal CMP. Discussed that passing the stone was likely but risk of it continuing to be obstructive remains. Offered urology referral to but patient prefers to visit PCP and receive a referral to a urologist in a closer location. Strict return precautions discussed. <Dalia Torres, DO - Last Filed: 02/07/19 08:33> Lab Data Lab Results 02/06/19 02/06/19 02/06/19 Range/Units 15:35 15:40 15:40 WBC 10.8 (4.5-11.0) X10^3/uL RBC 5.48 (4.5-5.9) X10^6/uL Hgb 16.2 (13.5-17.5) g/dL Hct 47.5 (41-53) % MCV 86.7 (80-100) fL MCH 29.6 (26-34) PG MCHC 34.2 (30-36) % RDW 13.5 (11.6-14.8) % Plt Count 244 (150-400) X10^3/uL Neut % (Auto) 71.2 (50-75) % Lymph % (Auto) 19.5 L (25-40) % [place] % (Auto) 7.4 (3-14) % Eos % (Auto) 1.3 L (2-4) % Baso % (Auto) 0.6 (0-2) % Neut # (Auto) 7700 H (9516-3202) /uL Lymph # (Auto) 2100 (8068-5064) /uL [place] # (Auto) 800 (0-900) /uL Eos # (Auto) 100 (0-450) /uL Baso # (Auto) 100 (0-100) /uL Sodium 139 (137-145) mmol/L Potassium 4.5 (3.4-5.1) mmol/L Chloride 103 (98-107) mmol/L Carbon Dioxide 23 (22-32) mmol/L BUN 16 (9-20) mg/dL Creatinine 1.00 (0.66-1.25) mg/dL Estimated GFR > 60.0 (>60) mL/min BUN/Creatinine Ratio 16.0 (6-22) Glucose 136 H (70-100) mg/dL Calcium 9.8 (8.4-10.2) mg/dL Total Bilirubin 0.8 (0.2-1.3) mg/dL AST 34 (17-59) IU/L ALT 61 (21-72) IU/L Alkaline Phosphatase 99 (38-126) U/L Total Protein 8.3 H (6.3-8.2) g/dL Albumin 4.9 (3.5-5.0) g/dL Globulin 3.4 (1.7-4.1) g/dL Albumin/Globulin Ratio 1.4 (1.0-2.8) Lipase 66 (23-300) U/L Urine RBC 30-100/hpf H (0-5/HPF) Urine WBC 1-5/hpf (0-5/HPF) Ur Squamous Epith Cells 0-1 /hpf (0-5/HPF) Amorphous Sediment 2+ Urine Bacteria None seen (None) Urine Mucus 2+ H (Negative) Ur Culture Indicated? Cult not indicated Urine Dip Bedside Urine Glucose Negative Bedside Urine Bilirubin - Negative Bedside Urine Ketone - Negative Urine Specific [place] 1.030 Bedside Urine Occult Blood +++ Bedside Urine pH 5.0 Bedside Urine Protein +/- 15 Bedside Urine Urobilinogen - Negative Bedside Urine Nitrite - Negative Bedside Urine Leukocytes - Negative Esterase Discharge Plan Departure Patient Disposition: Home Clinical Impression: Renal calculi Discharge Date/Time: 02/06/19 17:39 Interventions: ED Discharge Assessment Last Done: 02/06/19 17:39 Instructions: DI for Kidney Stones Activity Restrictions/Additional Instructions: Thank you for choosing [facility] for your care. As discussed, you have a 4mm kidney stone that is causing you pain. You have been prescribed a pain medication (do not drive with this), an anti-nausea medication and a medication to help dilate your urinary tract to pass the stone. As you preferred, please follow up with Dr. Fuentes for a closer urology referral than urology. Use the strainer every time you urinate and if you catch a stone, place it in the container provided and bring it to your follow-up appointment. Prescriptions: New hydrocodone-acetaminophen [[place]] 5-325 mg tablet 1 tab PO Q4-6H PRN (Reason: pain) Qty: 10 RF: 0 tamsulosin 0.4 mg capsule 0.4 mg PO DAILY Qty: 10 RF: 0 ondansetron 4 mg tablet,disintegrating 4 mg PO Q6-8H PRN (Reason: nausea and vomiting) Qty: 10 RF: 0 No Action allopurinol 300 mg tablet 300 mg PO DAILY Qty: 90 RF: 3 atorvastatin 20 mg tablet 20 mg PO DAILY Qty: 90 RF: 3 Qvar RediHaler 80 mcg/actuation HFA aerosol breath activated 1 puff INHALATION Q12H Qty: 10.6 RF: 5 fluticasone propionate 50 mcg/actuation spray,suspension 2 spray NASAL DAILY Qty: 9.9 RF: 8 propranolol 20 mg tablet 20 mg PO BID Qty: 180 RF: 3 Levitra 1 tab PO PRN PRN (Reason: Erectile Dysfunction) RF: 0 Mucinex 1 tab PO PRN PRN (Reason: Congestion) RF: 0 amlodipine 5 mg tablet 5 mg PO DAILY RF: 0 losartan 100 mg tablet 50 mg PO BID RF: 0 albuterol sulfate [Ventolin HFA] 90 mcg/actuation HFA aerosol inhaler 2 puff INH Q6HP PRN (Reason: Shortness Of Breath) RF: 0 Referrals: Mark Fuentes MD [Primary Care Provider] - <Dalia Torres DO - Last Filed: 02/07/19 08:33> Cosign ED Attending Cosignature Attestation: I was immediately available in the department for consultation. Documentation has been reviewed. I agree with assessment and plan.
[2019-02-06] MEDS: ONDANSETRON 4 MG/2 ML INJ IV (15:58)
[2019-02-06] MEDS: KETOROLAC 60 MG/2 ML VIAL 30 MG IV (15:58)
[2019-02-06] MEDS: SODIUM CHLORIDE 0.9% 1,000 ML 1000 ML IV (15:59)
[2019-02-06 16:00] LABS: Alanine Aminotransferase 61 IU/L (21-72); Albumin 4.9 g/dL (3.5-5.0); Albumin Globulin Ratio 1.4 (1.0-2.8); Alkaline Phosphatase 99 U/L (38-126); Aspartate Aminotransferase 34 IU/L (17-59); Bilirubin Total 0.8 mg/dL (0.2-1.3); Blood Urea Nitrogen 16 mg/dL (9-20); Calcium 9.8 mg/dL (8.4-10.2); Carbon Dioxide 23 mmol/L (22-32); Chloride 103 mmol/L (98-107); Estimated Glomerular Filt Rate > 60.0 mL/min (>60); Globulin 3.4 g/dL (1.7-4.1); Glucose 136 mg/dL (70-100); HEMOLYSIS < 15 (0-50); Lipase 66 U/L (23-300); Potassium 4.5 mmol/L (3.4-5.1); Sodium 139 mmol/L (137-145); Total Protein 8.3 g/dL (6.3-8.2)
[2019-02-06 16:33] LABS: Bacteria Urine None Seen
[2019-02-06 16:41] LABS: Amorphous Sediment Urine 2+; Culture Indicated Urine Cult Not Indicated; Mucus Urine 2+ (Negative); RBC Urine 30-100/HPF (0-5/HPF); Squamous Epithelial Cell Urine 0-1 /HPF (0-5/HPF); WBC Urine 1-5/HPF (0-5/HPF)
[2019-02-06 17:00] VITALS: BP 148/76; PULSE 76; RESP 18; O2SAT 96
[2019-02-06 17:38] VITALS: BP 144/72; PULSE 73; RESP 18; O2SAT 99
== END 2019-02-06 17:39 | disposition home or self-care (01) ==
PROVIDERS: Emergency Provider Nurse Practitioner; PCP Family Medicine
DX: N20.0 Calculus of kidney (principal); R11.0 Nausea
CPT/HCPCS: 36591; 74176; 80053; 81003; 81015; 83690; 85025; 96361; 96374; 96375; 99283; 99284; J1885; J2405

== ENCOUNTER → 2019-04-08 12:01 | Outpatient (CLI) | payer OTHER, SELFPAY ==
--- NOTE | 2019-04-08 | DI.US.S_ITS ---
PROCEDURE: US RENAL COMPLETE INDICATIONS: KIDNEY STONES TECHNIQUE: Real-time scanning was performed of the kidneys and bladder, with image documentation. COMPARISON: [facility], CT, CT KIDNEY URETER BLADDER (KUB), 02/06/2019, 15:50. FINDINGS: Kidneys: Kidneys are normal in size. Right kidney measures 13.1 cm long; left kidney measures 11.9 cm long. Right renal cortical thickness is 1.5 cm; left renal cortical thickness is 1.7 cm. Renal cortical echotexture is normal. No hydronephrosis. There is a nonobstructing 1.2 cm calculus in the upper pole of the right kidney. No suspicious solid mass lesions. Bladder: Pre-void bladder volume is 157 mL. Post-void residual is zero mL. Pre-void images demonstrate no intraluminal masses or stones. On pre-void images, neither ureteral jets are noted with color Doppler interrogation. (Of note, ureteral jets may not be detectable in up to 25% of cases due to insufficient differences in specific gravity between ureteral and bladder urine). Miscellaneous: No free pelvic fluid. IMPRESSION: 1. No hydronephrosis or postvoid residual. 2. Nonobstructive right renal calculus. Dictated by: Marli Sinha M.D. on 04/08/2019 at 14:11 Approved by: Marli Sinha M.D. on 04/08/2019 at 14:14
== END ==
PROVIDERS: PCP Family Medicine; Visit Provider Urology
DX: N20.0 Calculus of kidney (principal)
CPT/HCPCS: 76770

== ENCOUNTER → 2019-09-08 11:36 | Outpatient (CLI) | payer OTHER, SELFPAY ==
[2019-09-08 12:16] LABS: Add Manual Diff / Slide Review NO; Basophils Absolute Auto 0 /uL (0-100); Basophils Percent Auto 0.4 % (0-2); Eosinophils Absolute Auto 200 /uL (0-450); Eosinophils Percent Auto 2.3 % (2-4); Hematocrit 45.1 % (41-53); Hemoglobin 15.2 g/dL (13.5-17.5); Lymphocytes Absolute Auto 2400 /uL (1100-4500); Lymphocytes Percent Auto 30.4 % (25-40); Mean Corpuscular HGB Conc 33.8 % (30-36); Mean Corpuscular Volume 88.7 fL (80-100); Monocytes Absolute Auto 600 /uL (0-900); Monocytes Percent Auto 7.8 % (3-14); Neutrophils Absolute Auto 4600 /uL (1500-7000); Neutrophils Percent Auto 59.1 % (50-75); Platelet Count 235 X10^3/uL (150-400); Red Blood Cell Count 5.08 X10^6/uL (4.5-5.9); Red Cell Distribution Width 13.7 % (11.6-14.8); White Blood Cell Count 7.8 X10^3/uL (4.5-11.0)
[2019-09-08 12:34] LABS: Blood Urea Nitrogen 16 mg/dL (9-20)
== END ==
PROVIDERS: PCP Family Medicine; Visit Provider Orthopaedic Surgery
DX: Z01.812 Encounter for preprocedural laboratory examination (principal); Z01.818 Encounter for other preprocedural examination; R79.89 Other specified abnormal findings of blood chemistry
CPT/HCPCS: 36415; 84520; 85025; 93005; 93010

== ENCOUNTER 2019-09-19 05:56 | Inpatient (IN) | payer OTHER, SELFPAY ==
[2019-09-09 13:59] VITALS: BMI 40.6
[2019-09-19] VITALS (19 sets, daily range): BP systolic 125–175; BP diastolic 70–93; PULSE 63–98; RESP 6–19; TEMP 36.1–37.4; O2SAT 90–98; BMI 40.6
[2019-09-19] MEDS: LACTATED RINGERS 1,000 ML 42 ML IV ×2 (06:30→09:10)
--- NOTE | 2019-09-19 07:25 | PM.PREOP ---
Pre-operative Note Interval Note History & Physical reviewed/Exam performed by Physician: Yes Changes to H&P: No
--- NOTE | 2019-09-19 07:27 | PM.OP.1 ---
Operative Date/Time/Diagnoses Date of procedure: 09/19/19 Time of procedure: 10:07 Pre-op diagnosis: Cervical stenosis with myelopathy Morbid obesity Post-op diagnosis: same Procedure & Clinicians Procedure: C5-6, C6-7 anterior cervical diskectomy and fusion with cage Iliac crest bone graft aspirate Use of microscope Same procedure as scheduled: Yes Indications: [age] year old male with progressive cervical myelopathy. They had failed conservative management and requested operative intervention. Risks and benefits of surgery were discussed and appropriate consents were obtained. Surgeon: Miguelito Restrepo Parent Coach: Sharri King Anesthesia Type: General Operative Notes Findings: None Closure Type: primary Specimen(s): none sent Prosthetic devices, grafts, tissues, transplants, or devices: Natalie AYAH-C Estimated Blood Loss (mL): 5 Blood products transfused: none Procedure in detail: Patient was brought to the operating room and intubated on the table. A time-out was performed. Preoperative antibiotics were given. The neck was prepped and draped in the standard sterile fashion. Using a skin fold, we made a 3 cm oblique incision on the left side. We used Bovie to go through the platysma and then did a standard anterolateral blunt dissection down to the precervical fascia. Fascia was nicked and elevated up. A marker was placed and x-ray was taken for localization. We then subperiosteally elevated up the longus colli muscles. Self-retaining retractors were placed. [place] pins were placed. We then brought in the microscope. A scalpel used to perform an annulotomy. We then used a combination of pituitaries and curettes and Kerrison to perform a complete anterior diskectomy at C6-7. We used the bur to take down the posterior osteophytes. We took down the PLL and used Kerrison to remove any posterior disc material and osteophytes. At the end we could from the nerve hook cephalad caudally and out the foramen and everything was opened. A small stab incision was made over the left anterior iliac crest. A Jamshidi needle was advanced down the pedicle and 2 mL of bone marrow was aspirated. We then used the trials. We then packed a 14 x 17 x 6 mm AYAH-C cage with Primagen bone graft and the iliac crest harvest. The cage was placed under fluoroscopic guidance. We then placed our two locking plates and confirmed with x-ray. The retractors moved up to the C5-6 level. A complete diskectomy was performed including taking down the PLL and removing all the posterior osteophytes and disc material. We then trialed and placed a 14 x 17 x 6 mm AYAH-C cage with bone graft for the fusion at this level. The locking plates were placed. The self-retaining retractors and [place] pins were removed and final x-rays taken. The wound was irrigated. There was no bleeding. The carotid was beating nicely. The platysma was closed. The superficial was closed. The skin was closed. A sterile dressing was placed. They were then extubated and brought to recovery room with no complications. Please note this surgery was increased in both time and complexity due to the patient's morbid obesity. We had difficulty with visualization with the fluoroscopy going through his shoulders. We had used extra deep retractors which limited our mobility with our instrumentation. This increased our operating time by 1/3. Complications: none Post-operative Condition: stable Disposition: PACU Plan for aftercare: Inpatient overnight. Anticipate discharge tomorrow.
[2019-09-19] MEDS: ALBUTEROL/IPRATROPIUM 3 ML AMPUL INH (07:35)
[2019-09-19] MEDS: CEFAZOLIN 2 GM/100 ML FROZ.PIGGY IV ×2 (07:50→16:35)
[2019-09-19] MEDS: THROMBIN (RECOMBINANT) 5,000 UNIT VIAL 5000 UNIT TOP (08:25)
[2019-09-19] MEDS: SODIUM CHLORIDE 0.9% 1,000 ML, GENTAMICIN 80 MG IRR (08:25)
[2019-09-19] MEDS: BUPIVACAINE 0.25% W/ EPI (PF) 10 ML VIAL 20 ML INJ (08:26)
--- NOTE | 2019-09-19 08:28 | SUR.OPER ---
Supine, head on gel donut. Arms padded with gel pads, tucked at sides, towel roll under shoulders. Safety belt at thigh. Legs uncrossed.
[2019-09-19] MEDS: HYDROMORPHONE 2 MG INJ IV ×4 (10:25→10:54)
[2019-09-19] MEDS: hydrOXYzine 50 MG/ML INJ IM (10:36)
--- NOTE | 2019-09-19 10:45 | SUR.PHASEI ---
Collar is for comfort only per Dr. Restrepo, may remove collar if patient wishes.
--- NOTE | 2019-09-19 10:52 | SUR.PHASEI ---
Patient reported dull sensation to rt thumb.
[2019-09-19] MEDS: LORazepam 2 MG/ML INJ 0.5 MG IV (11:06)
--- NOTE | 2019-09-19 11:22 | SUR.PHASEI ---
Report called to Barb
--- NOTE | 2019-09-19 11:40 | SUR.PHASEI ---
Patient transferred to the floor on 1L o2. Report given to Barb. Dressings CDI x2, neck collar in place. VS stable. IV saline locked. Belongings bag and glasses with case with patient.
[2019-09-19] MEDS: LACTATED RINGERS 1,000 ML 125 ML IV ×2 (12:50→20:33)
[2019-09-19] MEDS: HYDROCODONE/ACET 5/325 TABLET 2 TAB PO ×2 (12:50→16:51)
[2019-09-19] MEDS: CELECOXIB 200 MG CAPSULE 400 MG PO (12:52)
[2019-09-19] MEDS: DEXAMETHASONE 4 MG/ML VIAL IV ×2 (12:53→18:47)
--- NOTE | 2019-09-19 13:15 | PC.NURSE ---
Pt has dressing to his anterior neck that is cdi. There is also a dressing to his l.flank, cdi. Pt is a&ox3. Given 2 vicodin for comfort and helpful. Pt also given celebrex and decadron. in room and attentive to care. LR hung at 125cc/hr. Pt is resting comfortably.
--- NOTE | 2019-09-19 13:18 | CM.SWNOTE ---
Initial D/C planning note: GARBAGE COLLECTOR DRIVER reviewed EMR to assess pt status and d/c planning needs. Payor: Lesley ANDERSON. Provider: Dr. Miguelito Restrepo/Ortho. Pt found to be alert and oriented, eating his first meal since surgery. His is at bedside and able to provide information re: their plan for continued care at home. They decline the need for HH, DME or any other in-home services. states that she and their adult daughter, who also lives at home, will plan to care for him. His mother is also flying in and will also be available to assist. Pt expresses that the current plan for d/c home tomorrow feels reasonable. No further needs identified at this time. Discharge Planning/Care Management CM Discharge Assessment Start: 09/19/19 13:10 Freq: Status: Active Protocol: Document 09/19/19 13:11 DPL (Rec: 09/19/19 13:17 DPL [id number]) Discharge Planning Assessment Assigned Safe And Vault Installer Christina Pérez, WIRE INSERTER Advance Directives? Yes: Living will Advance Directives on File No History Provided By Patient,Family Member Expected Length of Stay 1 Has Patient been admitted in last 30 No days? Prior Living Arrangements House Household Members spouse,family,children Type of transporation used prior to Drives own vehicle admit Independent with ADL's Yes Is patient alert and oriented? Yes Needs Assistance With Meal Prep,Managing Medications ,Home Chores / Shopping Comment Pt's and dtr are planning to provide for pt's care needs. Caregiver for Another No Comment N/A Comment Not needed, per pt. Comment Home w/care of family. Barriers to Discharge No Discharge Plan Home Transportation Arrangement Pt's will transport pt home. She will need assistance getting him into the car. Referrals Initiated None needed Additional Comment Pt declines the need for in- home services once d/c'd. Pre-Anesthesia Assessment Start: 09/09/19 13:59 Freq: Status: Complete Protocol: Document 09/09/19 13:59 CAB (Rec: 09/09/19 13:59 CAB [id number]) Pre-Anesthesia Assessment Patient Information Reviewed Via Phone Assessment Assessment Completed With Patient Diagnostic Results BMP/CMP,CBC,EKG Comment Labs/EKG @ [facility] 09/08/19 Primary Care Provider Mark Fuentes Seen Specialist in Last 12 Months Yes Specialist Seen Orthopedist Primary Language [place] [employer] Internship Required No Height 182.88 cm Weight 136.078 kg Body Mass Index (BMI) 40.6 Hearing Ability Normal Visual Assist Glasses Dentition Type Teeth, Natural Present,Dental Implants Barriers to Learning None Hx Anesthesia Reactions No Hx Family Anesthesia Reaction No Hx Malignant Hyperthermia No Hx Blood Transfusions No Anesthesia Review Requested No alcohol intake current alcohol intake frequency holidays/special occasions only Smoking Status Former smoker how long ago did patient quit smoking Quit 30 years ago Substance Use Type does not use Pain Present Pain Reported Musculoskeletal Symptoms Abnormal Gait,Back Pain, Difficulty Walking,Joint Pain, Limited Range of Motion,Muscle Weakness,Neck Pain,Numbness, Radiating Pain into Limb History of Falling (Recent or History of No ) Patient is completely paralyzed or No completely immobile Mental Status Oriented to own ability Is patient on oxygen? No Does patient have COTTRELL/SOB Yes: I'm out of shape Hx Sleep Apnea No Currently Taking a Beta Raul Yes: Propranolol Can You Climb a Flight of Stairs Without No SOB Hx Chest Pain Yes: Atypical Hx SOB Yes: I'm out of shape Hx Syncope or Dizziness No Anti-Coagulant Therapy No Has a Television Cameraman No Cardiac Testing Yes: Echo 10/07/18, Stress 10/24 Hx Pacemaker/ICD No Pacemaker Rep Required? No Cardiac Clearance Received Not Applicable Comment RBBB worked up w/Echo, Stress, negative for ischemia, EF 60- 65% Diet Type At Home Regular dysphagia No Genitourinary Symptoms Change in Urinary Stream Bladder Pattern Nocturia Urinary Catheter Present No Hx Urinary Self Catheterization No Diabetes No Hx Drug Resistant Organism No Presence of External or Internal Medical No Devices Have you traveled outside the [facility] in the last 30 days? Marital Status Lives With spouse,family,children Prior Living Arrangements House Number of Floors (Floors) One Floor Support System Child/Children,Spouse Does the Patient Have Assistance After Yes Surgery Patient Discharge Plan Description Return Home Comment Pt advised 1 day length of stay per surgeon Feels Safe in Current Environment Yes Been Physically Hurt or Threatened By a No Person in Current Environment Do you have thoughts of harming yourself None or others? Are you currently considering suicide? No Do you have a plan to hurt yourself or No Plan others? Do You Have Any Spiritual Beliefs That No May Affect Your HC Choices? Do You Have Any Cultural Practices That No May Affect Your HC Choices? Comment Bahai Who Can We Speak to About Patient's Care Family, friends Identifying Code for Release of Patient Declines to issue Information Health Care Proxy/Next of Kin Luz Maria () Health Care Proxy Emergency Contact Name Luz Maria () Tracy ( daughter) Emergency Contact Phone Number Luz Maria: [phone] Tracy : [phone] Advance Directives? Yes: Living will Advance Directives on File No Requested Patient Bring Advanced Yes Directives DOS Power of Meat Hostess Yes Power of Meat Hostess Name Luz Maria () Power of Meat Hostess PAC Instructions Do not shave/clip surgical site,Durable medical equipment ,Medications to take/avoid, Nasal antibiotic,No ETOH/ petroleum product on skin DOS, NPO,Post-op transportation,Pre -surgical wash,Sturdy shoes/ comfortable clothes,Do not bring valuables and remove jewelry
[2019-09-19] MEDS: BENZOCAINE/MENTHOL 1 LOZ PKT 1 EACH PO ×2 (14:10→16:51)
--- NOTE | 2019-09-19 14:52 | PT.IIE ---
Current Diagnoses Morbid (severe) obesity due to excess calories (09/19/19) Spinal stenosis, cervical region (09/19/19) Strain of muscle, fascia and tendon at neck level, subsequent encounter (09/19/19) Surgery Performed Operation Date: 09/19/19 07:45 Actual Procedures p C5-6 & C6-7 anterior cervical discectomy and fusion w/bone graft - Miguelito Restrepo MD Surgical History (Last Updated 09/09/19 @ 14:11 by Ericka Heredia RN) Hx of oral surgery (Acute) Status post arthroscopy Status post arthroscopy Status post tonsillectomy and adenoidectomy Medical History (Last Updated 09/09/19 @ 14:26 by Ericka Heredia RN) Anxiety (Acute) Colitis (Acute) Former smoker (Acute) Gout (Chronic) Hypercholesterolemia (Chronic) Hypertension (Chronic) Numbness and tingling (Acute) RBBB (right bundle branch block) (Acute) Seasonal allergies (Acute) Physical Therapy Inpatient Evaluation/Re-Eval M1 PT/OT-IP Prior Functional Status Start: 09/19/19 16:17 Freq: NEEDED Status: Active Protocol: Document 09/19/19 14:52 AB (Rec: 09/19/19 16:29 AB [id number]) Medical Review Prior Functional Status Medical History Reviewed Yes Communication able to make needs known Mobility and Gait pt stated that he is modified independent with all mobilities and ambulation without AD. Stated that he wobbles during walking due to his back and hip problems. Social History Household Members spouse,family,children Living Arrangements House Number of Floors (Floors) One Floor Number of Stairs To Enter/Railing? 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 pt also has an adjustable bed at home and plans to have HOB elevated with getting in/out of the bed M2 PT-IP Current Condition Start: 09/19/19 16:17 Freq: NEEDED Status: Active Protocol: Document 09/19/19 14:52 AB (Rec: 09/19/19 16:29 AB [id number]) Physical Therapy Current Condition Current Condition Evaluation Date 09/19/19 Treatment Diagnosis C5-6, 6-7 ACDF; difficulty in walking Onset Date 09/09/19 Precautions Cervical Spine Precautions Soft Collar for Comfort,No Heavy Lifting,Log Roll M3 PT-IP Subjective Start: 09/19/19 16:17 Freq: NEEDED Status: Active Protocol: Document 09/19/19 14:52 AB (Rec: 09/19/19 16:29 AB [id number]) Subjective Physical Therapy Visit Type Type Initial Evaluation Visit Start Time 14:52 Visit Stop Time 15:25 Total Visit Minutes 33 Number of IN STORE DEMONSTRATOR Visits 0 Physical Therapy Visit Comments Patient Comments pt agreeable to do PT Therapy Pain Assessment Pain When Pain Assessed At Rest Pain Present Pain Present Pain Reported Location Throat Intensity 5 Scale Used Numeric (1 - 10) Pain Management Techniques Timing of Activity with Medications M4 PT-IP Mobility and Gait Start: 09/19/19 16:17 Freq: NEEDED Status: Active Protocol: Document 09/19/19 14:52 AB (Rec: 09/19/19 16:29 AB [id number]) PT-Bed Mobility Assessment Supine to Sit Supine to Sit Standby Assistance,Head of Bed Elevated,Bedrails PT-Transfer Assessment Equipment Transfer Assistive Device None,Gait Belt Orthotic/Prosthetic Devices or Brace: Yes Transfers Transfer Destination Chair Transfer Technique ambulated without AD Transfer Ability Level of Assist Standby Assistance,Contact Guard Assistance Comments Mobility Comments pt stated that he has an adjustable bed and will have his head elevated whe doing bed mobility. pt completed supine to sit SBA using bed rails and HOB elevated. Gait Assessment Gait Gait Assistance Required: Standby Assistance,Contact Guard Assist Distance (Feet) 35 Able to Maintain Weight Bearing Status Yes During Gait Assistive Devices Assistive Device None,Gait Belt Orthotic/Prosthetic Devices or Brace: Yes Gait Deviations General Gait Pattern Antalgic,Decreased Stride Length,Decreased Feet Clearance,Narrow Based Gait, Wide Based Gait Factors Limiting Gait Function Factors Limiting Gait Function Decreased Activity Tolerance, Decreased Sensation,Decreased Strength,Limited Range of Motion,Pain,Poor Balance Comments Gait Comments pt completed ambulation in room without AD. initially requiring CGA and presents with unsteady waddling gait but only require SBA towards end of ambulation. pt requested to sit up on chair after ambulation. positioned on chair. call light and table placed within reach. PT-Balance Assessment Sitting Balance and Reactions Static Sitting Balance Ability Good Dynamic Sitting Balance Ability Good Standing Balance and Reactions Static Standing Balance Ability Good Dynamic Standing Balance Ability Fair Device Used without AD M5 PT-IP Objective Assessments Start: 09/19/19 16:17 Freq: NEEDED Status: Active Protocol: Document 09/19/19 14:52 AB (Rec: 09/19/19 16:29 AB [id number]) Orientation Orientation/Cognition Level of Alertness Alert Orientation Name,Place,Situation Language Function Ability No Deficits Noted Safety Awareness Understands Safety Issues Memory Description No Deficits Noted Gross Range of Motion Lower Extremity ROM Assessment Within Functional Limits Strength Lower Extremity Strength Assessment Within Functional Limits Sensation Assessment Sensation Gross Sensation Right UE Impaired Comments Sensation Comments c/o only numbness and only 50% sensation on R thumb and index finger Muscle Tone Muscle Tone WNL Yes M6 PT-IP Treatment Start: 09/19/19 16:17 Freq: NEEDED Status: Active Protocol: Document 09/19/19 14:52 AB (Rec: 09/19/19 16:29 AB [id number]) Physical Therapy Treatment Education Education Provided Precautions,Post-Op Packet, Safety Brace Education [place],Patient, Caregiver Other Treatments Other Treatment Performed educated pt and spouse on soft collar management. spouse was able to assist pt with soft collar M7 PT-IP Assessment and Plan Start: 09/19/19 16:17 Freq: NEEDED Status: Active Protocol: Document 09/19/19 14:52 AB (Rec: 09/19/19 16:29 AB [id number]) PT Summary Assessment and Plan Potential Rehabilitation Potential Good Status of Condition at Evaluation Stable Summary Impairments Pain,ROM,Strength,Balance, Coordination,Sensation,Bed Mobility,Transfers,Gait, Activity Tolerance Assessment Summary pt requires SBA to CGA with mobility and plans to go home with spouse/children to assist him. pt may go home when medically stable. Goals Bed Mobility Goal Independent Transfer Goal Independent Gait Goal Independent Gait Distance 200 Other Goals up/down 2 steps without rails SBA Days to Meet Goals 3 Frequency of Treatment Frequency Of Treatment Twice a Day Treatment Plan Physical Therapy Treatment Plan Bed Mobility Training,Transfer Training,Gait Training, Therapeutic Exercise,Balance Retraining,Post Op Education, Discharge Planning,Hot or Cold Pack,Neuromuscular Re-ed, Coordination Retraining,Manual Therapy Other Recommendations and Next Treatment ambulation Focus Recommendations To Nursing Amount of Assist Needed 1 Person Assist Discharge Recommendations PT Discharge Recommendations Home with Assistance
[2019-09-19] MEDS: hydrOXYzine pamoate 25 MG CAPSULE PO (19:03)
[2019-09-19] MEDS: BECLOMETHASONE 80 MCG INH 10.6 GM 1 PUFF INH (19:17)
[2019-09-19] MEDS: HYDROMORPHONE 0.5 MG INJ IV (20:02)
[2019-09-19] MEDS: CELECOXIB 200 MG CAPSULE PO (20:28)
[2019-09-19] MEDS: GABAPENTIN 300 MG CAPSULE PO (20:29)
[2019-09-19] MEDS: DOCUSATE 100 MG CAPSULE PO (20:29)
[2019-09-19] MEDS: LOSARTAN 50 MG TABLET PO (20:29)
[2019-09-19] MEDS: SENNOSIDES 8.6 MG TABLET 17.2 MG PO (20:30)
[2019-09-19] MEDS: PROPRANOLOL 10 MG TABLET 20 MG PO (20:30)
[2019-09-20] MEDS: CEFAZOLIN 2 GM/100 ML FROZ.PIGGY IV (00:48)
[2019-09-20] MEDS: DEXAMETHASONE 4 MG/ML VIAL IV ×2 (00:48→06:01)
[2019-09-20] MEDS: CYCLOBENZAPRINE 10 MG TABLET PO ×2 (01:02→08:55)
[2019-09-20] MEDS: HYDROCODONE/ACET 5/325 TABLET 2 TAB PO ×2 (01:02→08:53)
[2019-09-20 03:21] VITALS: BP 154/87; PULSE 94; RESP 17; TEMP 36.8; O2SAT 93
[2019-09-20] MEDS: HYDROMORPHONE 0.5 MG INJ IV ×2 (04:49→06:46)
[2019-09-20] MEDS: diphenhydrAMINE 25 MG TABLET PO (04:49)
[2019-09-20] MEDS: LACTATED RINGERS 1,000 ML 125 ML IV (04:50)
--- NOTE | 2019-09-20 06:30 | PC.NURSE ---
Pt reports mild tingling numbness to right first finger and thumbs tips at beginning of shift, as night progressed pt had improvement of symptom, now reports numb/tingling to thumb tip only, All other CMS intact. Pt reports pain ranging from 7-5 overnight, completed 4 doses of IV dex. Pt did report frustrating insomnia, appreciated education regarding expected side effect of IV dex. Mild pruritis at dressing site, po benadryl given x1 Pt stated IV diluadid worked better for his pain at throat, neck surgical sited than 2 tabs [place]. Did report IV pain med made him feel woozy but the improved pain control was necessary. Pt voiding adequate amts. IV fluid stopped and R wrist IV saline locked per order. Pt denies nausea, PO intake tolerated. Pt following activity precautions, log roll only, soft cervical collar in place for comfort. Anticipated dc today.
--- NOTE | 2019-09-20 07:23 | PM.PNPO.1 ---
Subjective Subjective Date Patient Seen: 09/20/19 Time Patient Seen: 07:23 Interval history: He is doing very well. No more arm pain. Has a little residual numbness in the tip of the right thumb, much better than yesterday afternoon. Able to swallow, but still has a sore throat. He has been up and out of bed and moving well. Exam Vital Signs (past 8 hours): - 09/19/19 23:40 09/20/19 03:21 Temperature 98.1 F 98.3 F Pulse Rate 98 H 94 H Respiratory Rate 19 17 Blood Pressure 143/77 H 154/87 H Pulse Oximetry 95 93 Oxygen Delivery Method Room Air Oxygen Flow Rate 0 Const Orientation: alert and oriented x3 Back/Spine/Pelvis Other: CDI. 5/5 motor both upper extremities Assessment & Plan Post-op Postoperative Procedures: Procedures Operation Date: 09/19/19 07:45 Actual Procedures Side Surgeon p C5-6 & C6-7 anterior cervical discectomy and fusion w/bone graft Miguelito Restrepo MD He is doing well. Plan to discharge home. Quality VTE Deep Vein Thrombosis/Pulmonary Embolism Present on Admission: No
[2019-09-20 08:00] VITALS: BP 150/75; PULSE 94; RESP 16; TEMP 37.2; O2SAT 94
--- NOTE | 2019-09-20 08:34 | OT.IP.EVAL ---
Current Diagnoses Morbid (severe) obesity due to excess calories (09/19/19) Spinal stenosis, cervical region (09/19/19) Strain of muscle, fascia and tendon at neck level, subsequent encounter (09/19/19) Surgery Performed Operation Date: 09/19/19 07:45 Actual Procedures p C5-6 & C6-7 anterior cervical discectomy and fusion w/bone graft - Miguelito Rsetrepo MD Past Medical History (Last Updated 09/09/19 @ 14:26 by Ericka Heredia RN) Anxiety (Acute) Colitis (Acute) Former smoker (Acute) Gout (Chronic) Hypercholesterolemia (Chronic) Hypertension (Chronic) Numbness and tingling (Acute) RBBB (right bundle branch block) (Acute) Seasonal allergies (Acute) Surgical History (Last Updated 09/09/19 @ 14:11 by Ericka Heredia RN) Hx of oral surgery (Acute) Status post arthroscopy Status post arthroscopy Status post tonsillectomy and adenoidectomy Occupational Therapy Inpatient Evaluation/Re-Eval M1 PT/OT-IP Prior Functional Status Start: 09/19/19 16:17 Freq: NEEDED Status: Active Protocol: Document 09/20/19 09:44 CGR (Rec: 09/20/19 09:52 CGR [email or web address]) Medical Review Prior Functional Status Medical History Reviewed Yes Communication able to make needs known Mobility and Gait pt stated that he is independent with all mobilities and ambulation without AD. Stated that he wobbles during walking due to his back and hip problems. Activities of Daily Living and IADL's Pt was IND in all ADLs prior to admit. Social History Household Members spouse,family,children Living Arrangements House Number of Floors (Floors) One Floor Number of Stairs To Enter/Railing? 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 M2 OT-IP Current Condition Start: 09/20/19 09:44 Freq: Status: Active Protocol: Document 09/20/19 09:44 CGR (Rec: 09/20/19 09:52 CGR [email or web address]) Occupational Therapy Current Condition Current Condition Evaluation Date 09/20/19 Treatment Diagnosis C5-7 ACDF Diagnosis Onset Date 09/19/19 Post Operative Precautions Cervical Spine Precautions Soft Collar at all Times,No Heavy Lifting,Log Roll M3 OT- IP Subjective and Pain Start: 09/20/19 09:44 Freq: Status: Active Protocol: Document 09/20/19 09:44 CGR (Rec: 09/20/19 09:52 CGR [email or web address]) OT- Subjective Occupational Therapy Visit Type Type Initial Evaluation Visit Start Time 08:13 Visit Stop Time 08:34 Total Visit Minutes 21 Occupational Therapy Visit Comments Patient Comments I am ready to get home and sleep in my own bed. OT Pain Assessment Pain When Pain Assessed At Rest Pain Present Pain Present Pain Reported Location Throat Intensity 7 Scale Used Numeric (1 - 10) Management Techniques Modification of Treatment,Re- positioning M4 OT- IP ADL's Start: 09/20/19 09:44 Freq: Status: Active Protocol: Document 09/20/19 09:44 CGR (Rec: 09/20/19 09:52 CGR [email or web address]) OT [id number]-Utdilhr General Evaluation Self-Feeding Ability Independent Comments OT Self-Feeding Comments Pt was finishing breakfast when OT entered. OT ADL-Grooming General Evaluation Grooming Ability Independent Areas Needing Assistance Face Washing Comments OT Grooming Comments Standing at sink OT ADL-Oral Care General Eval Oral Care Ability Independent Areas of Assistance Brushing Teeth Comments Oral Care Comments Standing at sink OT ADL-Dressing General Eval Lower Body Dressing Ability Independent Areas Needing Assistance Socks OT ADL-Toileting General Evaluation Toileting Ability Independent OT ADL-Bathing Comments OT Bathing Comments Not performed in this session. M5 OT- IP IADL's Start: 09/20/19 09:44 Freq: Status: Active Protocol: Document 09/20/19 09:44 CGR (Rec: 09/20/19 09:52 CGR [email or web address]) OT-Instrumental Activities of Daily Living Deficits IADL Deficits Identified No Deficits Home Safety Awareness Awareness of Need for Assistance at Home Good Awareness Ability to Problem Solve Emergency Able to Problem Solve Situations Medication Management Medication Management No Deficits Identified Money Management Money Management No Deficits Identified Meal Preparation Meal Preparation No Deficits Identified Veterinary Practitioner Veterinary Practitioner No Deficits Identified Driving Driving Caregiver Provides Assist M6 OT- IP Functional Cognition Start: 09/20/19 09:44 Freq: Status: Active Protocol: Document 09/20/19 09:44 CGR (Rec: 09/20/19 09:52 CGR [email or web address]) Cognitive Factors Limiting Selfcare Function Cognitive Ability Level of Alertness Alert Patient Orientation Name,Age,Birthday,Month,Date, Year,Day of Week,Place, Situation Attention Span Ability Capable of Focused Attention, Capable of Sustained Attention Ability to Follow Commands Able to Follow Multi-Step Commands Memory Description No Deficits Noted Safety Awareness No Deficits Noted Problem Solving Ability No deficits Noted Executive Function Ability No Deficits Noted Abstract Thinking Ability No Deficits Noted OT- Vision and Hearing OT- Hearing Assessment OT- Hearing Assessment WFL OT- Vision Assessment Visual Acuity Glasses All The Time Visual Attentiveness WFL Occular Pursuits WFL Visual Convergence WFL Visual [place] WFL Diplopia Absent Visual Spacial Neglect Not Applicable M7 OT- IP Mobility and Balance Start: 09/20/19 09:44 Freq: Status: Active Protocol: Document 09/20/19 09:44 CGR (Rec: 09/20/19 09:52 CGR [email or web address]) OT- Bed Mobility Assessment Rolling Level of Assistance Independent,Head of Bed Elevated Supine to Sit Supine to Sit Assist Independent Scooting Scooting to Edge of Bed Independent OT-Transfer Assessment Sit to and From Stand Sit to and from Stand Standby Assistance Transfers Transfer Ability Standby Assistance Technique Transfer Destination Bed,Chair,Toilet Transfer Technique Stand Step Pivot Devices Transfer Assistive Devices Gait Belt OT- Gait Assessment Gait Gait Assistance Required: Standby Assistance Assistive Devices Assistive Device Gait Belt OT- Balance Assessment Sitting Balance and Reactions Static Sitting Balance Ability Good Dynamic Sitting Balance Ability Fair M8 OT- IP Objective Assessments Start: 09/20/19 09:44 Freq: Status: Active Protocol: Document 09/20/19 09:44 CGR (Rec: 09/20/19 09:52 R [email or web address]) OT Gross Range of Motion Upper Extremity Range of Motion Assessment Within Functional Limits OT Strength Upper Extremity Strength Assessment Within Functional Limits OT- Coordination Assessment Upper Extremity Finger to Nose Test Within Functional Limits Finger Tapping Test Within Functional Limits OT-Muscle Tone Assessment Muscle Tone WNL Yes OT Sensation Assessment Comments Summary Comments Pt states no sensation deficits at this time, improved since sx. Edema Edema Absent M9 OT- IP Assessment and Plan Start: 09/20/19 09:44 Freq: Status: Active Protocol: Document 09/20/19 09:44 CGR (Rec: 09/20/19 09:52 CGR [email or web address]) OT Summary Assessment and Plan Potential Rehabilitation Potential Excellent Analytic Complexity at Evaluation Low Summary OT Impairments Pain Progress Towards Goals Safe For Discharge,Goals Met Assessment Summary Pt presents as a low complexity evaluation. Pt educated on use neck brace for limiting neck movement. Pt safe for discharge home with family support. Frequency of Treatment Frequency Of Treatment Discharge Discharge Recommendations OT Discharge Recommendations Home with Assistance Home Equipment Needs None
[2019-09-20 08:54] VITALS: BP 150/75
[2019-09-20] MEDS: guaiFENesin ER 600 MG TAB PO (08:54)
[2019-09-20] MEDS: LOSARTAN 50 MG TABLET PO (08:54)
[2019-09-20] MEDS: AMLODIPINE 5 MG TABLET PO (08:55)
[2019-09-20] MEDS: DOCUSATE 100 MG CAPSULE PO (08:55)
[2019-09-20] MEDS: CELECOXIB 200 MG CAPSULE PO (08:55)
[2019-09-20] MEDS: ATORVASTATIN 20 MG TABLET PO (08:55)
[2019-09-20] MEDS: ALLOPURINOL 300 MG TABLET PO (08:56)
[2019-09-20 09:00] VITALS: O2SAT 97
[2019-09-20] MEDS: BECLOMETHASONE 80 MCG INH 10.6 GM 1 PUFF INH (09:00)
[2019-09-20] MEDS: PROPRANOLOL 10 MG TABLET 20 MG PO (09:10)
== END 2019-09-20 09:17 | disposition home or self-care (01) | DRG 472 ==
PROVIDERS: Admitting Provider Orthopaedic Surgery; PCP Family Medicine; Visit Provider Orthopaedic Surgery
PROC: 0RG20A0 Fusion of 2 or more Cervical Vertebral Joints with Interbody Fusion Device, Anterior Approach, Anterior Column, Open Approach (ICD-10-PCS; principal; 2019-09-19 07:45)
DX: M48.02 Spinal stenosis, cervical region (principal); Z68.41 Body mass index [BMI] 40.0-44.9, adult; G95.29 Other cord compression; E66.01 Morbid (severe) obesity due to excess calories; I10 Essential (primary) hypertension; M10.9 Gout, unspecified; E78.5 Hyperlipidemia, unspecified; J45.909 Unspecified asthma, uncomplicated
CPT/HCPCS: 94640; 97161; 97165; C1776; J0690; J1100; J1170; J2060; J2250; J2405; J2704; J3010; J3410

== ENCOUNTER → 2020-02-13 08:33 | Outpatient (CLI) | payer OTHER, SELFPAY ==
[2019-09-19 13:05] VITALS: BMI 40.6
--- NOTE | 2020-02-13 08:35 | DI.RAD.S_ITS ---
PROCEDURE: FL UPPER GI W AIR INDICATIONS: Chest pain COMPARISON: None. FINDINGS: KUB: Preprocedural marketing coordinator film demonstrates a normal bowel gas pattern. No suspicious abdominal calcifications. Visualized solid organ contours appear normal. Bony structures appear unremarkable. Esophagus: Esophageal mucosa is normal on air-contrast views. On single-contrast views, there is decreased esophageal peristalsis. There is also delayed esophageal clearance No strictures, extrinsic mass effects, or diverticula. No hiatal hernia or elicited gastroesophageal reflux. Stomach: The stomach is normally distensible, with normal rugal fold thickness. No mucosal masses or ulcers. Pylorus and duodenal bulb appear normal in morphology. Duodenal folds are normal in thickness as well. IMPRESSION: Mild esophageal dysmotility Dictated by: Modesto Urias M.D. on 02/13/2020 at 10:14 Approved by: Modesto Urias M.D. on 02/13/2020 at 10:17
== END ==
PROVIDERS: PCP Family Medicine; Referring Provider Family Medicine; Visit Provider Family Medicine
DX: R07.9 Chest pain, unspecified (principal); K22.4 Dyskinesia of esophagus
CPT/HCPCS: 74246

== ENCOUNTER → 2020-03-10 13:25 | Outpatient (CLI) | payer OTHER, SELFPAY ==
[2019-09-19 13:05] VITALS: BMI 40.6
--- NOTE | 2020-03-31 09:48 | PM.CARDMON.1 ---
[employer] Report Referral & Results Date Patient Seen: 03/10/20 Requesting provider: Mark Fuentes Indication: Dizziness and giddiness Duration of monitoring (days): 7 Diary information: There were 3 patient triggered events and no patient diary entries. The patient triggered events were associated with sinus rhythm Data: Minimum heart rate identified was 43 beats per minute at 05:11 on 03/17/2020 Maximum heart rate identified was 115 beats per minute at 10:03 on 03/14/2020 Less than 1% of identified beats or either ventricular supraventricular ectopic in origin Impression: Normal equipment monitor phototypesetting without evidence of significant dysrhythmia. Occasional PVC and PAC identified. Patient triggered events were associated with sinus rhythm only
== END ==
PROVIDERS: PCP Family Medicine; Referring Provider Family Medicine; Visit Provider Family Medicine
DX: R42 Dizziness and giddiness (principal)
CPT/HCPCS: 0296T; 0298T

== ENCOUNTER → 2020-03-17 08:06 | Outpatient (CLI) | payer OTHER, SELFPAY ==
[2019-09-19 13:05] VITALS: BMI 40.6
--- NOTE | 2020-03-17 08:07 | DI.US.S_ITS ---
PROCEDURE: US ABDOMEN COMPLETE INDICATIONS: PAIN TECHNIQUE: Real-time scanning was performed of the abdominal and retroperitoneal organs, with image documentation. COMPARISON: [facility], CT, CT KIDNEY URETER BLADDER (KUB), 02/06/2019, 15:50. [facility], US, US RENAL COMPLETE, 04/08/2019, 12:14. FINDINGS: Liver: The liver demonstrates normal size. The liver demonstrates generalized increased echogenicity. This decreases ultrasound sensitivity for detection of hepatic masses. Likely fatty sparing can be seen adjacent to the gallbladder. Gallbladder: No findings of gallstones or sludge are seen. The gallbladder wall is not thickened, measuring 3 mm or less. No specific pericholecystic fluid is seen. The sonographic Busby sign is negative. Biliary ducts: Intrahepatic bile ducts are non-dilated. Extrahepatic bile duct caliber measures 4.5 mm. Normal is 6-7 mm or less in diameter, or 10 mm or less post-cholecystectomy. Pancreas: Not seen, obscured by overlying bowel gas. Spleen: Spleen is normal in size and homogeneous in echotexture. Kidneys: Kidneys are normal in size and echotexture. Right kidney measures 12.9 cm long; left kidney measures 11.5 cm long. No hydronephrosis or nephrolithiasis. No solid masses. Aorta: Visualized aorta is normal in caliber at less than 3 cm. Iliacs: Proximal common iliac arteries are normal in caliber at less than 2.5 cm. IVC: Intrahepatic inferior vena cava is patent. Miscellaneous: No free abdominal fluid. This study is limited by body habitus. IMPRESSION: The gallbladder demonstrates a normal sonographic appearance. No biliary dilatation is seen. The liver demonstrates increased echogenicity. This finding is nonspecific, yet it is attributed to fatty infiltration, with fatty sparing seen adjacent to the gallbladder. Dictated by: Mehrdad Saunders M.D. on 03/17/2020 at 12:28 Approved by: Mehrdad Saunders M.D. on 03/17/2020 at 12:29
[2020-03-17 10:10] LABS: Add Manual Diff / Slide Review NO; Basophils Absolute Auto 0 /uL (0-100); Basophils Percent Auto 0.6 % (0-2); Eosinophils Absolute Auto 200 /uL (0-450); Eosinophils Percent Auto 2.5 % (2-4); Hematocrit 42.9 % (41-53); Hemoglobin 14.6 g/dL (13.5-17.5); Lymphocytes Absolute Auto 2100 /uL (1100-4500); Lymphocytes Percent Auto 29.2 % (25-40); Mean Corpuscular HGB Conc 34.2 % (30-36); Mean Corpuscular Hemoglobin 30.1 PG (26-34); Mean Corpuscular Volume 88.2 fL (80-100); Monocytes Absolute Auto 600 /uL (0-900); Monocytes Percent Auto 8.8 % (3-14); Neutrophils Absolute Auto 4200 /uL (1500-7000); Neutrophils Percent Auto 58.9 % (50-75); Platelet Count 229 X10^3/uL (150-400); Red Blood Cell Count 4.86 X10^6/uL (4.5-5.9); Red Cell Distribution Width 13.8 % (11.6-14.8); White Blood Cell Count 7.1 X10^3/uL (4.5-11.0)
[2020-03-17 10:37] LABS: Alanine Aminotransferase 31 IU/L (<50); Albumin 4.3 g/dL (3.5-5.0); Albumin Globulin Ratio 1.6 (1.0-2.8); Alkaline Phosphatase 91 U/L (38-126); Aspartate Aminotransferase 26 IU/L (17-59); BUN Creatinine Ratio 18.4 (6-22); Bilirubin Total 0.6 mg/dL (0.2-1.3); Blood Urea Nitrogen 16 mg/dL (9-20); Calcium 9.1 mg/dL (8.4-10.2); Carbon Dioxide 29 mmol/L (22-32); Chloride 105 mmol/L (98-107); Cholesterol 154 mg/dL (140-199); Estimated Glomerular Filt Rate > 60.0 mL/min (>60); Globulin 2.7 g/dL (1.7-4.1); Glucose 123 mg/dL (70-100); HDL Cholesterol 37 mg/dL (40-60); HEMOLYSIS < 15 (0-50); LDL Cholesterol Calculated 94 mg/dL (<100); Potassium 4.3 mmol/L (3.4-5.1); Sodium 140 mmol/L (137-145); Triglycerides 114 mg/dL (35-150)
[2020-03-17 11:06] LABS: Prostate Specific Antigen Scrn 0.589 ng/mL (0.1-4.0); Thyroid Stimulating Hormone 1.47 uIU/mL (0.47-4.68)
== END ==
PROVIDERS: PCP Family Medicine; Referring Provider Family Medicine; Visit Provider Family Medicine
DX: R10.9 Unspecified abdominal pain (principal); E78.2 Mixed hyperlipidemia
CPT/HCPCS: 36415; 76700; 80053; 80061; 84443; 85025; G0103

== ENCOUNTER → 2020-06-18 10:58 | Outpatient (CLI) | payer OTHER, SELFPAY ==
[2019-09-19 13:05] VITALS: BMI 40.6
--- NOTE | 2020-06-18 | DI.RAD.S_ITS ---
PROCEDURE: FL BARIUM SWALLOW INDICATIONS: Dysphagia, unspecified COMPARISON: [facility], , FL UPPER GI W AIR, 02/13/2020, 7:55. FINDINGS: Function: There is normal esophageal peristalsis. No elicited gastroesophageal reflux. There is normal transit of a calibrated barium tablet through the esophagus into the stomach. Initiation of swallowing reflex was normal. No laryngotracheal penetration or aspiration. No pathologic pooling of contrast material in the vallecular or piriform sinuses. No diverticulum or stricture. Morphology: Air-contrast images demonstrate normal mucosal morphology. Single contrast views show no esophageal strictures, extrinsic mass effects, or diverticula. IMPRESSION: Normal examination without evidence of laryngotracheal penetration or aspiration. Dictated by: Emelina Cerna MD, PhD on 06/18/2020 at 13:15 Approved by: Emelina Cerna MD, PhD on 06/18/2020 at 13:17
== END ==
PROVIDERS: PCP Family Medicine; Referring Provider Family Medicine; Visit Provider Orthopaedic Surgery
DX: R13.10 Dysphagia, unspecified (principal)
CPT/HCPCS: 74220

== ENCOUNTER → 2020-11-24 10:18 | Outpatient (CLI) | payer OTHER, SELFPAY ==
[2019-09-19 13:05] VITALS: BMI 40.6
[2020-11-24 11:21] LABS: Add Manual Diff / Slide Review NO; Basophils Absolute Auto 0 /uL (0-100); Basophils Percent Auto 0.5 % (0-2); Eosinophils Absolute Auto 200 /uL (0-450); Eosinophils Percent Auto 2.5 % (2-4); Hematocrit 46.8 % (41-53); Lymphocytes Absolute Auto 2300 /uL (1100-4500); Lymphocytes Percent Auto 31.1 % (25-40); Mean Corpuscular HGB Conc 34.2 % (30-36); Mean Corpuscular Hemoglobin 29.8 PG (26-34); Mean Corpuscular Volume 87.2 fL (80-100); Monocytes Absolute Auto 700 /uL (0-900); Monocytes Percent Auto 9.7 % (3-14); Neutrophils Absolute Auto 4200 /uL (1500-7000); Neutrophils Percent Auto 56.2 % (50-75); Platelet Count 249 X10^3/uL (150-400); Red Blood Cell Count 5.36 X10^6/uL (4.5-5.9); Red Cell Distribution Width 13.2 % (11.6-14.8); White Blood Cell Count 7.5 X10^3/uL (4.5-11.0)
[2020-11-24 11:39] LABS: Alanine Aminotransferase 47 IU/L (<50); Albumin 4.8 g/dL (3.5-5.0); Albumin Globulin Ratio 1.5 (1.0-2.8); Alkaline Phosphatase 100 U/L (38-126); Aspartate Aminotransferase 31 IU/L (17-59); BUN Creatinine Ratio 19.6 (6-22); Bilirubin Total 0.7 mg/dL (0.2-1.3); Blood Urea Nitrogen 18 mg/dL (9-20); Calcium 9.6 mg/dL (8.4-10.2); Carbon Dioxide 26 mmol/L (22-32); Chloride 104 mmol/L (98-107); Estimated Glomerular Filt Rate > 60.0 mL/min (>60); Globulin 3.1 g/dL (1.7-4.1); Glucose 132 mg/dL (70-100); HEMOLYSIS < 15 (0-50); Lactate Dehydrogenase 405 U/L (313-618); Lipase 49 U/L (23-300); Potassium 4.4 mmol/L (3.4-5.1); Sodium 138 mmol/L (137-145); Total Protein 7.9 g/dL (6.3-8.2)
== END ==
PROVIDERS: PCP Family Medicine; Referring Provider Family Medicine; Visit Provider Family Medicine
DX: K58.2 Mixed irritable bowel syndrome (principal); R73.9 Hyperglycemia, unspecified; F41.9 Anxiety disorder, unspecified; K21.9 Gastro-esophageal reflux disease without esophagitis
CPT/HCPCS: 36415; 80053; 83036; 83615; 83690; 85025

== ENCOUNTER → 2020-12-22 10:01 | Outpatient (CLI) | payer OTHER, SELFPAY ==
[2019-09-19 13:05] VITALS: BMI 40.6
[2020-12-22 11:39] LABS: COVID19 -Nasal RAPID Negative (Negative)
== END ==
PROVIDERS: PCP Family Medicine; Visit Provider Surgery
DX: Z20.822 Contact with and (suspected) exposure to COVID-19 (principal)
CPT/HCPCS: 87635; C9803

== ENCOUNTER 2020-12-23 12:32 | Day surgery (SDC) | payer OTHER, SELFPAY ==
[2019-09-19 13:05] VITALS: BMI 40.6
--- NOTE | 2020-12-23 | PATH_ITS ---
[facility] Accession Number: [id number] . 01 Material submitted: . gastrointestinal site - GASTRIC BIOPSY . 02 Diagnosis: Stomach, Biopsy: Gastric antral mucosa with minimal chronic inflammation. Negative for Helicobacter organisms by immunohistochemistry. Negative for intestinal metaplasia. Negative for dysplasia or malignancy. . MRV 12/28/2020 1417 Local . 02 Electronically signed: . Shawn Bucio MD, PhD, Pathologist NPI- [id number] . 01 Gross description: . GASTRIC BIOPSY: Received in formalin is 1 fragment(s) of walters, soft tissue measuring 0.1 x 0.1 x 0.1 cm submitted entirely in 1 cassette(s) /CAESAR 12/24/2020 2312 Local . 02 Microscopic: . A. An immunohistochemical stain was performed to evaluate for Helicobacter organisms and is negative. The control stain showed appropriate reactivity. . * This test was developed and its performance characteristics determined by [facility]. It has not been cleared or approved by the U.S. Food and Drug Administration. The FDA has determined that such clearance or approval is not necessary. This test is used for clinical purposes. It should not be regarded as investigational or for research. . 02 Pathologist provided ICD-10: K29.70 . 02 CPT . 019169, L02334 Performed at: [facility] [address], [place], [place] [id number] MD Oswaldo Dickey MD Phone: [phone] Performed at: 02 [facility] [address] [place], [place] [id number] MD Cari Levy MD Phone: [phone]
[2020-12-23 13:01] VITALS: BP 157/84; PULSE 67; RESP 16; TEMP 36.4; O2SAT 97; BMI 41.3
[2020-12-23] MEDS: LACTATED RINGERS 1,000 ML 200 ML IV (13:23)
--- NOTE | 2020-12-23 14:09 | PM.PREOP ---
Pre-operative Note Interval Note History & Physical reviewed/Exam performed by Physician: Yes Changes to H&P: No
--- NOTE | 2020-12-23 14:51 | P.OP.ENDO_ITS ---
Operative Date/Time/Diagnoses Date of procedure: 12/23/20 Time of procedure: 14:51 Pre-op diagnosis: Esophageal dysphagia. Change in bowel habits Post-op diagnosis: same Procedure & Clinicians Study performed: Esophagoduodenoscopy Colonoscopy Same procedure as scheduled: Yes Indications: 55-year-old man history of GERD with new esophageal dysphagia and change in bowel habits Surgeon: Parish Palafox Procedure Notes Procedure in detail: Medications: Conscious sedation using 10 mg IV midazolam and 350mcg IV of fentanyl The history and physical was performed/updated and the patient is ASA class is 2. The procedure was discussed in detail with the patient. Potential risks complications including infection, bleeding, missed diagnosis, perforation, need for surgery, and were explained. Their questions were answered and inform ed consent was obtained. Patient placed in left lateral decubitus position. Time out was performed. Procedural sedation was administered with Versed and Fentanyl. A bite block was placed. the scope was inserted into the mouth and advanced through the esophagus and into the stomach. The pylorus was intubated and the duodenum was normal to the 2nd portion. The scope was retroflexed within the stomach and there was no hiatal hernia. Mild gastritis of the distal aspect of the stomach no active bleeding or ulcers. Biopsy of the stomach was performed with forceps. The scope was withdrawn into the esophagus the Z line was seen at 40 cm from the incisions. There was no Darby's esophagitis or masses or strictures. Stomach was desufflated and scope removed. Patient tolerated procedure well. Examination began with a thorough inspection of the perianal area there was no evidence of fissures, fistulae, external hemorrhoids or cutaneous malignancy. The colonoscopy scope was then placed into the anal canal and was advanced to the cecum, which was identified by the ileocecal valve, the appendiceal orifice and the confluence of the taenia. The scope was then slowly withdrawn examining colon thoroughly in all directions, irrigating it of any residual stool. No masses or polyps Sigmoid diverticulosis The patient tolerated the procedure well. They will be discharged once criteria are met. The prep was of good/excellent quality. The withdrawl time was 7 minutes. The sedation time was 37 minutes. Specimen(s): other (gastric biopsy) Complications: none Impression: gastritis Post-procedure Recommendations: Colonscopy in 10 years and Reflux diet Plan for aftercare: Add pepcid in additon to omeprazole. Will f/u with biopsy of stomach Disposition: same day surgery
[2020-12-23] MEDS: MIDAZOLAM 5 MG/5 ML VIAL IV (14:52)
[2020-12-23 14:53] VITALS: BP 112/67; PULSE 60; RESP 14; TEMP 37.2; O2SAT 96
[2020-12-23] MEDS: fentaNYL 250 MCG/5 ML INJ IV (14:53)
[2020-12-23] MEDS: LIDOCAINE 4% SOLN 50 ML 20 ML TOP (14:53)
[2020-12-23 15:03] VITALS: BP 108/64; PULSE 69; RESP 18; TEMP 37.1; O2SAT 94
[2020-12-23 15:25] VITALS: BP 103/63; PULSE 67; RESP 20; TEMP 36.7; O2SAT 97
== END 2020-12-23 15:47 | disposition home or self-care (01) ==
PROVIDERS: PCP Family Medicine; Referring Provider Family Medicine; Visit Provider Surgery
PROC: 0DJ08ZZ Inspection of Upper Intestinal Tract, Via Natural or Artificial Opening Endoscopic (ICD-10-PCS; CPT 43235; principal; 2020-12-23 13:45)
PROC: 0DJD8ZZ Inspection of Lower Intestinal Tract, Via Natural or Artificial Opening Endoscopic (ICD-10-PCS; CPT 45378; 2020-12-23 13:45)
DX: R19.4 Change in bowel habit (principal); K21.9 Gastro-esophageal reflux disease without esophagitis; E66.9 Obesity, unspecified; K29.50 Unspecified chronic gastritis without bleeding; K57.30 Diverticulosis of large intestine without perforation or abscess without bleeding
CPT/HCPCS: 43239; 45378; 99152; 99153; J2250; J3010

== ENCOUNTER → 2021-09-19 11:55 | Outpatient (CLI) | payer OTHER, SELFPAY ==
[2019-09-19 13:05] VITALS: BMI 40.6
--- NOTE | 2021-09-19 11:55 | DI.MRI.S_ITS ---
PROCEDURE: MR LUMBAR SPINE WO CON INDICATIONS: Spinal stenosis, lumbar region without neurogenic TECHNIQUE: Noncontrast sagittal T1 spin echo and T2 fast echo, sagittal STIR, axial T1 and T2 fast spin echo through the lumbar spine. In cases with scoliosis, additional coronal T2 fast spin echo may be performed. COMPARISON: None. FINDINGS: Normal lumbar vertebral body height. No suspicious focal marrow signal abnormality or bone marrow edema. Retrolisthesis of L5 with respect to both L4 and S1, likely degenerative in nature, measuring approximately 4 mm at both levels. Otherwise normal alignment. Normal position and appearance of the conus. No acute finding of the included unenhanced paraspinous, prevertebral, or retroperitoneal soft tissues. T12-L1: No spinal canal or neural foraminal stenosis. L1-L2: No spinal canal or neural foraminal stenosis. Facet hypertrophy with subchondral cystic change. L2-L3: Diffuse disc bulge flattens the ventral thecal sac. No spinal canal stenosis or mass effect upon the descending L3 nerve roots. Small foraminal components of the disc bulge contribute to mild bilateral neural foraminal stenosis in conjunction with facet hypertrophy. Small left-sided facet joint effusion. L3-L4: Moderate to severe spinal canal stenosis due to primarily to short pedicles and the presence of prominent ventral and dorsal epidural fat, with contribution from buckling of the ligamentum flavum and facet hypertrophy. No significant disc bulge or herniation. Mild bilateral neural foraminal narrowing due to congenital shortening of the pedicles and facet hypertrophy. L4-L5: Moderate to severe spinal canal stenosis due to shortened pedicles with pseudo bulge related to the anterolisthesis of L4 on L5, in conjunction with facet hypertrophy and buckling of the ligamentum flavum. There is also prominence of both ventral and dorsal epidural fat. These factors combine to produce moderate right and mild left neural foraminal stenosis. L5-S1: Diffuse disc bulge flattens the ventral thecal sac. Minimal displacement of the descending S1 nerve roots within both subarticular zones. Foraminal components of the disc bulge and facet hypertrophy combine to produce mild right and moderate left neural foraminal stenosis. IMPRESSION: Moderate to severe spinal canal stenosis at L3-L4 and L4-L5, due at both levels to a combination of shortened pedicles with borderline epidural lipomatosis. Moderate neural foraminal narrowing on the right at L4-L5 and on the left at L5-S1. Dictated by: Gabo Selby M.D. on 09/19/2021 at 12:42 Approved by: Gabo Selby M.D. on 09/19/2021 at 12:48
== END ==
PROVIDERS: PCP Family Medicine; Referring Provider Physical Medicine & Rehabilitation; Visit Provider Physical Medicine & Rehabilitation
DX: M48.061 Spinal stenosis, lumbar region without neurogenic claudication (principal)
CPT/HCPCS: 72148

== ENCOUNTER 2021-10-21 16:38 | Emergency (ER) | payer OTHER, SELFPAY ==
[2019-09-19 13:05] VITALS: BMI 40.6
[2021-10-21 16:58] VITALS: BP 188/86; PULSE 75; RESP 18; TEMP 36.3; O2SAT 99; BMI 40.6
--- NOTE | 2021-10-21 17:02 | DI.RAD.S_ITS ---
PROCEDURE: XR CHEST 1V INDICATIONS: chest pain TECHNIQUE: One view of the chest was acquired. COMPARISON: [facility], CR, XR CHEST 1V, 09/25/2018, 17:30. FINDINGS: Surgical changes and devices: None. Lungs and pleura: Lungs are clear. No pleural effusions or pneumothorax. Mediastinum: Mediastinal contours appear normal. Heart size is enlarged. Bones and chest wall: No suspicious bony lesions. Overlying soft tissues appear unremarkable. Low-profile lower cervical spine instrumentation noted IMPRESSION: Cardiomegaly without vascular congestion Approved by: Cristobal Parker M.D. on 10/21/2021 at 16:51
--- NOTE | 2021-10-21 17:18 | ED.CHESTPAIN ---
HPI - Chest Pain <Oleg Garcia PA-C - Last Filed: 10/21/21 18:24> General Chief Complaint: Chest Pain Stated Complaint: COVID POSITIVE CHEST ISSUES Time Seen by Provider: 10/21/21 17:08 Source: patient Mode of arrival: Ambulatory Limitations: no limitations History of Present Illness HPI narrative: Patient is a 56-year-old male presents to the ED for evaluation for continued shortness of breath. He was diagnosed with COVID approximately 1 week ago and has been becoming progressively worse. Patient reports his shortness of breath increases with any type of activity. He has an albuterol inhaler that he started using a couple days ago that does not seem to be doing much today. He started with a productive cough however in the last day his cough has now moved to be more of a dry nonproductive cough and he states that his shortness of breath is increasing. He denies any chest pain nausea vomiting diarrhea. He states that he does get chills has to be covered with blankets and fever. He has a history of hyperlipidemia hypertension borderline diabetes he is currently vaccinated for COVID. His and daughter have all tested positive for COVID. Related Data Home Medications Medication Instructions Recorded Confirmed Mucinex 1 tab PO DAILY 09/25/18 12/23/20 dicyclomine 10 mg capsule See Rx Instructions PO QID PRN 09/09/19 12/23/20 Previous Rx's Medication Instructions Recorded fluticasone propionate 50 2 spray NASAL DAILY #9.9 gram 01/09/19 mcg/actuation nasal spray,suspension ondansetron 4 mg disintegrating 4 mg PO Q6-8H PRN #10 tab 03/12/19 tablet celecoxib 200 mg capsule (Celebrex) 200 mg PO BID PRN #60 cap 09/20/19 cyclobenzaprine 10 mg tablet 10 mg PO TID PRN #90 tab 07/08/20 pantoprazole 40 mg tablet,delayed 40 mg PO BID #90 tab 11/24/20 release (Protonix) atorvastatin 20 mg tablet 20 mg PO DAILY #90 tab 12/06/20 losartan 100 mg tablet 100 mg PO BID #135 tab 12/06/20 famotidine 20 mg tablet 20 mg PO BID #90 tab 12/23/20 vardenafil 20 mg tablet (Levitra) 20 mg PO DAILY PRN #30 tab 01/13/21 amlodipine 5 mg tablet 5 mg PO DAILY #90 tab 01/21/21 sertraline 50 mg tablet See Rx Instructions .ROUTE 03/10/21 .COMPLEX #60 tab allopurinol 300 mg tablet 300 mg PO DAILY #90 tab 03/14/21 albuterol sulfate 90 mcg/actuation 2 puff INHALATION Q6HP PRN #8.5 04/05/21 aerosol inhaler (Ventolin HFA) gram propranolol 20 mg tablet 20 mg PO BID #180 tab 07/04/21 hydrocodone 5 mg-acetaminophen 325 1 - 2 tab PO Q6H PRN #60 tab 09/30/21 mg tablet Allergies Allergy/AdvReac Type Severity Reaction Status Date / Time No Known Drug Allergies Allergy Unknown Verified 10/21/21 17:02 Review of Systems <Oleg Garcia PA-C - Last Filed: 10/21/21 18:24> Review of Systems ROS Unobtainable: All systems reviewed & are unremarkable except as noted in HPI and below Constitutional Constitutional: Denies chills, Reports fatigue, Reports fever(s), Denies frequent falls, Reports lethargy and Denies weakness Eyes Eyes: Denies change in vision, Denies eye discharge, Denies irritation and Denies loss of vision ENT Ears, Nose, Mouth, and Throat: Denies change in voice, Denies dizziness, Denies neck pain, Denies sore throat and Denies throat swelling Cardiovascular Cardiovascular: Denies chest pain, Denies irregular heart rhythm, Denies lightheadedness, Denies palpitations, Reports dyspnea, Reports dyspnea on exertion and Denies orthopnea Respiratory Respiratory: Reports cough, Reports dyspnea, Reports dyspnea on exertion and Denies wheezing Gastrointestinal Gastrointestinal: Denies abdominal pain, Denies change in bowel habits, Denies diarrhea, Denies nausea and Denies vomiting Genitourinary Genitourinary: Denies hematuria, Denies flank pain, Denies urinary incontinence and Denies urinary urgency Musculoskeletal Musculoskeletal: Denies back pain, Denies muscle weakness, Denies neck pain, Denies numbness and Denies tingling Integumentary/Breasts Skin/Breast: Denies pruritus, Denies erythema, Denies rash and Denies wounds Neurologic Neurologic: Denies behavioral changes, Denies confusion, Denies dizziness, Denies frequent falls, Denies loss of vision, Denies numbness, Denies tingling and Denies weakness Psychiatric Psychiatric: Denies anxiety, Denies behavioral changes, Denies confusion, Denies depression, Denies homicidal ideation and Denies suicidal ideation Endocrine Endocrine: Reports fatigue, Denies flushing and Denies palpitations Hematologic/Lymphatic Hematologic/Lymphatic: Denies easy bruising Allergic/Immunologic Allergic/Immunologic: Denies urticaria, Denies throat swelling and Denies wheezing Patient History <Oleg Garcia PA-C - Last Filed: 10/21/21 18:24> Medical History Anxiety Colitis Former smoker GERD (gastroesophageal reflux disease) Gout Hypercholesterolemia Hypertension Mixed irritable bowel syndrome Numbness and tingling RBBB (right bundle branch block) Respiratory infection Seasonal allergies Surgical History Hx of oral surgery Status post arthroscopy Status post arthroscopy Status post tonsillectomy and adenoidectomy Family History Father Heart disease Hypertension High cholesterol Grandmother Cancer Grandmother Heart disease Hypertension High cholesterol Sister Age: 55 Overweight Sister Age: 46 Overweight Social History household members: spouse, family and children Smoking Status: Former smoker Tobacco: How many years used: 2 second hand exposure: Yes (childhood ) alcohol intake: current substance use type: does not use Smoking Status: Former smoker alcohol intake frequency: holidays/special occasions only Substance Use Type: does not use Exam <Oleg Garcia PA-C - Last Filed: 10/21/21 18:24> Initial Vital Signs Initial Vital Signs: Vital Signs Temperature 97.4 F L 10/21/21 16:58 Pulse Rate 75 10/21/21 16:58 Respiratory Rate 18 10/21/21 16:58 Blood Pressure 188/86 H 10/21/21 16:58 Pulse Oximetry 99 10/21/21 16:58 Const General: cooperative, healthy appearing and well developed Nutritional Appearance: obese Orientation: Orientation [facility] Head: normal to inspection, normocephalic and atraumatic Ears: hearing grossly normal bilaterally, external ears normal and TM's normal bilaterally Nose: external nose normal Face and sinus: normal facial exam Mouth: oral mucosae normal Eyes General: appearance normal, both eyes and all related structures Pupils: PERRL Resp Effort & Inspection: normal respiratory effort Auscultation: clear to auscultation bilaterally and diminished lung sounds bilaterally in the lower lung hopkins Cardio Rate: regular rate Rhythm: regular rhythm Heart Sounds: S1 normal and S2 normal GI Inspection: normal to inspection Palpation: soft Percussion: normal to percussion Auscultation: normal bowel sounds Neuro General: patient alert, patient awake and patient oriented x3 Cranial Nerves: CN's II-XI intact bilaterally Course <JENN Toth Last Filed: 10/21/21 18:24> Orders Ordered: ED Orders 10/21/21 17:02 XR chest 1V Stat EKG-12 Lead Stat 10/21/21 17:10 BNP [NT-proBNP (BNP-Adult 18+)] Stat Complete Blood Count AUTO DIFF Stat Comprehensive Metabolic Panel Stat Lipase Stat Magnesium Stat Partial Thromboplastin Time Stat Prothrombin Time INR Stat Troponin & CK Cardiac Panel Stat Reevaluation(s) Reevaluation #1: Patient doing okay vital signs remained stable I reviewed all lab findings an EKG with patient. 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 Vital Signs Vital signs: Vital Signs - 8 hr 10/21/21 16:58 10/21/21 18:27 Temperature 97.4 F L Pulse Rate 75 75 Respiratory Rate 18 18 Blood Pressure 188/86 H 148/70 H Pulse Oximetry 99 98 MDM - Chest Pain <JENN Toth Last Filed: 10/21/21 18:24> Differential Diagnosis Differential diagnosis: Likely other (COVID) Lab Data Result diagrams: 10/21/21 17:10 10/21/21 17:10 Labs: Lab Results 10/21/21 10/21/21 10/21/21 Range/Units 17:10 17:10 17:10 WBC 8.1 (4.5-11.0) X10^3/uL RBC 5.27 (4.5-5.9) X10^6/uL Hgb 15.5 (13.5-17.5) g/dL Hct 45.0 (41-53) % MCV 85.4 (80-100) fL MCH 29.4 (26-34) PG MCHC 34.4 (30-36) % RDW 13.6 (11.6-14.8) % Plt Count 240 (150-400) X10^3/uL Neut % (Auto) 63.5 (50-75) % Lymph % (Auto) 25.2 (25-40) % Sauk % (Auto) 9.3 (3-14) % Eos % (Auto) 1.6 L (2-4) % Baso % (Auto) 0.4 (0-2) % Neut # (Auto) 5200 (9749-0067) /uL Lymph # (Auto) 2100 (1954-7257) /uL Sauk # (Auto) 800 (0-900) /uL Eos # (Auto) 100 (0-450) /uL Baso # (Auto) 0 (0-100) /uL PT 12.0 (10.1-12.7) SECONDS INR 1.1 (0.9-1.3) APTT 31 (26.4-36.2) SECONDS Sodium 142 (137-145) mmol/L Potassium 4.1 (3.4-5.1) mmol/L Chloride 103 (98-107) mmol/L Carbon Dioxide 31 (22-32) mmol/L BUN 13 (9-20) mg/dL Creatinine 0.97 (0.66-1.25) mg/dL Estimated GFR > 60.0 (>60) mL/min BUN/Creatinine Ratio 13.4 (6-22) Glucose 114 H (70-100) mg/dL Calcium 9.3 (8.4-10.2) mg/dL Magnesium 2.2 (1.6-2.3) mg/dL Total Bilirubin 0.5 (0.2-1.3) mg/dL AST 41 (17-59) IU/L ALT 90 H (<50) IU/L Alkaline Phosphatase 98 (38-126) U/L Total Creatine Kinase 68 (55-170) U/L CK-MB (CK-2) TNP CK-MB (CK-2) Rel Index TNP Troponin I < 0.012 (0.01-0.034) ng/mL NT-Pro-B Natriuret Pep (<125) pg/mL Total Protein 8.0 (6.3-8.2) g/dL Albumin 4.6 (3.5-5.0) g/dL Globulin 3.4 (1.7-4.1) g/dL Albumin/Globulin Ratio 1.4 (1.0-2.8) Lipase 60 (23-300) U/L 10/21/21 Range/Units 17:10 WBC (4.5-11.0) X10^3/uL RBC (4.5-5.9) X10^6/uL Hgb (13.5-17.5) g/dL Hct (41-53) % MCV (80-100) fL MCH (26-34) PG MCHC (30-36) % RDW (11.6-14.8) % Plt Count (150-400) X10^3/uL Neut % (Auto) (50-75) % Lymph % (Auto) (25-40) % Sauk % (Auto) (3-14) % Eos % (Auto) (2-4) % Baso % (Auto) (0-2) % Neut # (Auto) (0689-9518) /uL Lymph # (Auto) (1585-4659) /uL Sauk # (Auto) (0-900) /uL Eos # (Auto) (0-450) /uL Baso # (Auto) (0-100) /uL PT (10.1-12.7) SECONDS INR (0.9-1.3) APTT (26.4-36.2) SECONDS Sodium (137-145) mmol/L Potassium (3.4-5.1) mmol/L Chloride (98-107) mmol/L Carbon Dioxide (22-32) mmol/L BUN (9-20) mg/dL Creatinine (0.66-1.25) mg/dL Estimated GFR (>60) mL/min BUN/Creatinine Ratio (6-22) Glucose (70-100) mg/dL Calcium (8.4-10.2) mg/dL Magnesium (1.6-2.3) mg/dL Total Bilirubin (0.2-1.3) mg/dL AST (17-59) IU/L ALT (<50) IU/L Alkaline Phosphatase (38-126) U/L Total Creatine Kinase (55-170) U/L CK-MB (CK-2) CK-MB (CK-2) Rel Index Troponin I (0.01-0.034) ng/mL NT-Pro-B Natriuret Pep 35 (<125) pg/mL Total Protein (6.3-8.2) g/dL Albumin (3.5-5.0) g/dL Globulin (1.7-4.1) g/dL Albumin/Globulin Ratio (1.0-2.8) Lipase (23-300) U/L Imaging Data Chest x-ray: Radiologist's Impression: PROCEDURE:? XR CHEST 1V ? INDICATIONS:? chest pain ? TECHNIQUE:? One view of the chest was acquired.? ? COMPARISON:? [facility], CR, XR CHEST 1V, 09/25/2018, 17:30. ? FINDINGS:? ? Surgical changes and devices:? None.? ? Lungs and pleura:? Lungs are clear.? No pleural effusions or pneumothorax.? ? Mediastinum:? Mediastinal contours appear normal.? Heart size is enlarged.? ? Bones and chest wall:? No suspicious bony lesions.? Overlying soft tissues appear unremarkable.? Low-profile lower cervical spine instrumentation noted ? IMPRESSION:? Cardiomegaly without vascular congestion ? ? ? Approved by: Cristobal Parker M.D. on 10/21/2021 at 16:51? ECG Data Attestation: I personally reviewed and interpreted this ECG as follows: Prior ECG tracings: not available for review Interpretation: Normal sinus rhythm with right bundle-branch block MDM Narrative Medical decision making narrative: Patient was evaluated in the ED today for shortness of breath that increased with activity. He was tested positive for COVID a week ago and is feeling that his symptoms are getting worse and presents today for evaluation. Chest x-ray and laboratory workup and EKG all are unremarkable no evidence of a pneumonia chest x-ray appears clear EKG showed right bundle-branch block I reviewed the findings with the patient he was aware of and has had this evaluated by fork lift truck operator last year and was told to follow up as needed. Based on today's workup in speaking with the patient it is likely patient will be discharged home and will follow-up as needed with PCP or return to the ED if symptoms become worse. Discharge Plan Departure Patient Disposition: Home Clinical Impression: COVID, Bundle branch block, right Instructions: DI for COVID-19 (Suspected or Confirmed ) Activity Restrictions/Additional Instructions: Center still positive for COVID he will still need to quarantine at home. You can take Mucinex OTC as directed. Continue to wear your mask and the socially distance and wash her hands frequently. Return to the emergency room if her symptoms get worse. Prescriptions: No Action ondansetron 4 mg tablet,disintegrating 4 mg PO Q6-8H PRN (Reason: nausea and vomiting) Qty: 10 0RF Rx Instructions: post epidural shots cyclobenzaprine 10 mg tablet 10 mg PO TID PRN (Reason: muscle spasm) Qty: 90 0RF losartan 100 mg tablet 100 mg PO BID Qty: 135 3RF Rx Instructions: Take 50mg (1/2 tab) in morning and 50mg (1/2 tab)in evening atorvastatin 20 mg tablet 20 mg PO DAILY Qty: 90 3RF vardenafil [Levitra] 20 mg tablet 20 mg PO DAILY PRN (Reason: sexual activity) Qty: 30 3RF amlodipine 5 mg tablet 5 mg PO DAILY Qty: 90 3RF sertraline 50 mg tablet See Rx Instructions .ROUTE .COMPLEX Qty: 60 0RF Dose Instruction: TAKE ONE TABLET BY MOUTH ONE TIME DAILY Rx Instructions: TAKE ONE TABLET BY MOUTH ONE TIME DAILY allopurinol 300 mg tablet 300 mg PO DAILY Qty: 90 3RF albuterol sulfate [Ventolin HFA] 90 mcg/actuation HFA aerosol inhaler 2 puff inhalation Q6HP PRN (Reason: Shortness Of Breath) Qty: 8.5 1RF propranolol 20 mg tablet 20 mg PO BID Qty: 180 2RF hydrocodone-acetaminophen 5-325 mg tablet 1 - 2 tab PO Q6H PRN (Reason: pain) Qty: 60 0RF Rx Instructions: Take 1 to 2 tablets by mouth up to every six hours as needed for pain. pantoprazole [Protonix] 40 mg tablet,delayed release (DR/EC) 40 mg PO BID Qty: 90 0RF fluticasone propionate 50 mcg/actuation spray,suspension 2 spray NASAL DAILY Qty: 9.9 8RF Mucinex 1 tab PO DAILY 0RF dicyclomine 10 mg capsule See Rx Instructions PO QID PRN (Reason: Colitis) 0RF Rx Instructions: 1-2 tabs PO four times daily prior to meals and at bedtime; celecoxib [Celebrex] 200 mg Capsule 200 mg PO BID PRN (Reason: pain) Qty: 60 0RF famotidine 20 mg tablet 20 mg PO BID Qty: 90 0RF Referrals: Teodoro Mejía MD [Primary Care Provider] -
[2021-10-21 17:36] LABS: Add Manual Diff / Slide Review NO; Basophils Absolute Auto 0 /uL (0-100); Basophils Percent Auto 0.4 % (0-2); Eosinophils Absolute Auto 100 /uL (0-450); Eosinophils Percent Auto 1.6 % (2-4); Hemoglobin 15.5 g/dL (13.5-17.5); Lymphocytes Absolute Auto 2100 /uL (1100-4500); Lymphocytes Percent Auto 25.2 % (25-40); Mean Corpuscular HGB Conc 34.4 % (30-36); Mean Corpuscular Hemoglobin 29.4 PG (26-34); Mean Corpuscular Volume 85.4 fL (80-100); Monocytes Absolute Auto 800 /uL (0-900); Monocytes Percent Auto 9.3 % (3-14); Neutrophils Absolute Auto 5200 /uL (1500-7000); Neutrophils Percent Auto 63.5 % (50-75); Platelet Count 240 X10^3/uL (150-400); Red Blood Cell Count 5.27 X10^6/uL (4.5-5.9); Red Cell Distribution Width 13.6 % (11.6-14.8); White Blood Cell Count 8.1 X10^3/uL (4.5-11.0)
[2021-10-21 17:47] LABS: INR 1.1 (0.9-1.3)
[2021-10-21 17:50] LABS: PTT Partial Thromboplastin Tim 31 SECONDS (26.4-36.2)
[2021-10-21 17:54] LABS: Alanine Aminotransferase 90 IU/L (<50); Albumin 4.6 g/dL (3.5-5.0); Albumin Globulin Ratio 1.4 (1.0-2.8); Alkaline Phosphatase 98 U/L (38-126); Aspartate Aminotransferase 41 IU/L (17-59); BUN Creatinine Ratio 13.4 (6-22); Bilirubin Total 0.5 mg/dL (0.2-1.3); Blood Urea Nitrogen 13 mg/dL (9-20); Calcium 9.3 mg/dL (8.4-10.2); Carbon Dioxide 31 mmol/L (22-32); Chloride 103 mmol/L (98-107); Creatine Kinase 68 U/L (55-170); Estimated Glomerular Filt Rate > 60.0 mL/min (>60); Globulin 3.4 g/dL (1.7-4.1); Glucose 114 mg/dL (70-100); HEMOLYSIS < 15 (0-50); Lipase 60 U/L (23-300); Magnesium 2.2 mg/dL (1.6-2.3); Potassium 4.1 mmol/L (3.4-5.1); Sodium 142 mmol/L (137-145)
[2021-10-21 18:03] LABS: NT-proBNP (BNP-Adult 18+) 35 pg/mL (<125)
[2021-10-21 18:05] LABS: Troponin I < 0.012 ng/mL (0.01-0.034)
[2021-10-21 18:27] VITALS: BP 148/70; PULSE 75; RESP 18; O2SAT 98
== END 2021-10-21 18:34 | disposition home or self-care (01) ==
PROVIDERS: Emergency Medicine; Emergency Provider Physician Assistant; PCP Family Medicine
DX: U07.1 COVID-19 (principal); I45.10 Unspecified right bundle-branch block; Z87.891 Personal history of nicotine dependence
CPT/HCPCS: 36415; 71045; 80053; 82550; 83690; 83735; 83880; 84484; 85025; 85610; 85730; 93005; 99284

== ENCOUNTER 2021-10-25 10:12 | Emergency (ER) | payer OTHER, SELFPAY ==
[2019-09-19 13:05] VITALS: BMI 40.6
[2021-10-25] VITALS (14 sets, daily range): BP systolic 117–189; BP diastolic 60–78; PULSE 58–69; RESP 11–27; TEMP 36.2; O2SAT 94–99; BMI 42.0
--- NOTE | 2021-10-25 10:25 | DI.RAD.S_ITS ---
PROCEDURE: XR CHEST 1V INDICATIONS: chest pain TECHNIQUE: One view of the chest was acquired. COMPARISON: [facility], CR, XR CHEST 1V, 10/21/2021, 17:19. [facility], CR, XR CHEST 1V, 09/25/2018, 17:30. FINDINGS: Surgical changes and devices: ACDF. Lungs and pleura: Lungs are clear. No pleural effusions or pneumothorax. Mediastinum: Mediastinal contours appear unchanged. Heart size is unchanged. Bones and chest wall: No suspicious bony lesions. Overlying soft tissues appear unremarkable. IMPRESSION: No acute cardiopulmonary abnormality. Dictated by: Tye Gore M.D. on 10/25/2021 at 11:39 Approved by: Tye Gore M.D. on 10/25/2021 at 11:40
[2021-10-25] MEDS: ASPIRIN 81 MG CHEW TAB 324 MG PO (10:45)
[2021-10-25 10:52] LABS: Add Manual Diff / Slide Review NO; Basophils Absolute Auto 100 /uL (0-100); Basophils Percent Auto 0.8 % (0-2); Eosinophils Absolute Auto 200 /uL (0-450); Eosinophils Percent Auto 2.5 % (2-4); Lymphocytes Absolute Auto 2300 /uL (1100-4500); Lymphocytes Percent Auto 28.9 % (25-40); Mean Corpuscular Hemoglobin 29.4 PG (26-34); Mean Corpuscular Volume 86.3 fL (80-100); Monocytes Absolute Auto 500 /uL (0-900); Neutrophils Absolute Auto 4900 /uL (1500-7000); Neutrophils Percent Auto 61.8 % (50-75); Platelet Count 285 X10^3/uL (150-400); Red Blood Cell Count 5.09 X10^6/uL (4.5-5.9); Red Cell Distribution Width 13.8 % (11.6-14.8); White Blood Cell Count 7.9 X10^3/uL (4.5-11.0)
[2021-10-25] MEDS: NITROGLYCERIN 0.4 MG SL TAB SL (10:53)
--- NOTE | 2021-10-25 10:54 | ED_ITS ---
HPI - Chest Pain General Chief Complaint: Chest Pain Stated Complaint: chest pains, dizzy, nausea sweating, hbp Time Seen by Provider: 10/25/21 10:19 Source: patient Mode of arrival: Wheelchair Limitations: no limitations History of Present Illness HPI narrative: Patient is a 56-year-old male. Is vaccinated against COVID. Within the past 2 weeks was exposed and was positive for COVID. He was seen here in the emergency department a couple days ago. Was subsequently sent home. He states that the shortness of breath he was having a couple days ago has resolved. Yesterday he felt fatigued but was improving. This morning he was sitting at breakfast when he had an onset of chest discomfort and dizzy and lightheadedness and diaphoresis. He walked to the bathroom and had a large bowel movement. He took his blood pressure was elevated. Generally did not feel well. By the time I evaluated him he thought that his symptoms have improved somewhat but was not back baseline. Related Data Home Medications Medication Instructions Recorded Confirmed Mucinex 1 tab PO DAILY 09/25/18 12/23/20 dicyclomine 10 mg capsule See Rx Instructions PO QID PRN 09/09/19 12/23/20 Previous Rx's Medication Instructions Recorded fluticasone propionate 50 2 spray NASAL DAILY #9.9 gram 01/09/19 mcg/actuation nasal spray,suspension ondansetron 4 mg disintegrating 4 mg PO Q6-8H PRN #10 tab 03/12/19 tablet celecoxib 200 mg capsule (Celebrex) 200 mg PO BID PRN #60 cap 09/20/19 cyclobenzaprine 10 mg tablet 10 mg PO TID PRN #90 tab 07/08/20 pantoprazole 40 mg tablet,delayed 40 mg PO BID #90 tab 11/24/20 release (Protonix) atorvastatin 20 mg tablet 20 mg PO DAILY #90 tab 12/06/20 losartan 100 mg tablet 100 mg PO BID #135 tab 12/06/20 famotidine 20 mg tablet 20 mg PO BID #90 tab 12/23/20 vardenafil 20 mg tablet (Levitra) 20 mg PO DAILY PRN #30 tab 01/13/21 amlodipine 5 mg tablet 5 mg PO DAILY #90 tab 01/21/21 sertraline 50 mg tablet See Rx Instructions .ROUTE 03/10/21 .COMPLEX #60 tab allopurinol 300 mg tablet 300 mg PO DAILY #90 tab 03/14/21 albuterol sulfate 90 mcg/actuation 2 puff INHALATION Q6HP PRN #8.5 04/05/21 aerosol inhaler (Ventolin HFA) gram propranolol 20 mg tablet 20 mg PO BID #180 tab 07/04/21 hydrocodone 5 mg-acetaminophen 325 1 - 2 tab PO Q6H PRN #60 tab 09/30/21 mg tablet Allergies Allergy/AdvReac Type Severity Reaction Status Date / Time No Known Drug Allergies Allergy Unknown Verified 10/21/21 17:02 Review of Systems Review of Systems ROS Unobtainable: All systems reviewed & are unremarkable except as noted in HPI and below Cardiovascular Cardiovascular: Reports as per HPI and Reports system reviewed and no additional complaints, except as documented Respiratory Respiratory: Reports as per HPI and Reports system reviewed and no additional complaints, except as documented Gastrointestinal Gastrointestinal: Reports as per HPI and Reports system reviewed and no addit ional complaints, except as documented Integumentary/Breasts Skin/Breast: Reports system reviewed and no additional complaints, except as documented and Reports as per HPI Neurologic Neurologic: Reports system reviewed and no additional complaints, except as documented and Reports as per HPI Hematologic/Lymphatic On Anticoagulants: No Patient History Medical History Anxiety Colitis Former smoker GERD (gastroesophageal reflux disease) Gout Hypercholesterolemia Hypertension Mixed irritable bowel syndrome Numbness and tingling RBBB (right bundle branch block) Respiratory infection Seasonal allergies Surgical History Hx of oral surgery Status post arthroscopy Status post arthroscopy Status post tonsillectomy and adenoidectomy Family History Father Heart disease Hypertension High cholesterol Grandmother Cancer Grandmother Heart disease Hypertension High cholesterol Sister Age: 55 Overweight Sister Age: 46 Overweight Social History household members: spouse, family and children Smoking Status: Former smoker Tobacco: How many years used: 2 second hand exposure: Yes (childhood ) alcohol intake: current substance use type: does not use Smoking Status: Former smoker alcohol intake frequency: holidays/special occasions only Substance Use Type: does not use Exam Initial Vital Signs Initial Vital Signs: Vital Signs Blood Pressure 189/78 H 10/25/21 10:23 HENMT Head: normal to inspection and normocephalic Resp Effort & Inspection: normal respiratory effort Auscultation: clear to auscultation bilaterally Cardio Rate: regular rate Rhythm: regular rhythm GI Palpation: soft Skin General: no rashes or lesions noted Neuro General: patient alert, patient awake and moves all extremities Speech: speech normal Extrem General: normal to inspection, capillary refill normal and No edema Psych Appearance: grossly normal and well kempt Course Orders Ordered: ED Orders 10/25/21 10:25 XR chest 1V Stat 10/25/21 10:28 EKG-12 Lead Stat 10/25/21 10:30 COVID19 -Nasal swab/Pre-Proc Stat Complete Blood Count AUTO DIFF Stat Comprehensive Metabolic Panel Stat Lipase Stat Magnesium Stat Troponin & CK Cardiac Panel Stat 10/25/21 12:50 Troponin I Stat Discontinued Medications Aspirin (Aspirin 81 Mg Chew Tab) 324 mg PO NOW ONE Stop: 10/25/21 10:32 Last Admin: 10/25/21 10:45 Dose: 243 mg Documented by: NICKY Nitroglycerin (Nitroglycerin 0.4 Mg Sl Tab) 0.4 mg SL [id number] PRN PRN Reason: Chest Pain Last Admin: 10/25/21 10:53 Dose: 0.4 mg Documented by: NICKY Ondansetron HCl (Ondansetron 4 Mg/2 Ml Inj) 4 mg IV NOW ONE Stop: 10/25/21 11:08 Last Admin: 10/25/21 13:26 Dose: Not Given Documented by: NICKY Vital Signs Vital signs: Vital Signs - 8 hr 10/25/21 10:53 10/25/21 10:56 10/25/21 11:00 Pulse Rate 65 62 66 Respiratory Rate 13 11 L Blood Pressure 174/72 H 137/65 117/60 Pulse Oximetry 97 97 10/25/21 11:30 10/25/21 12:00 10/25/21 12:30 Pulse Rate 58 L 59 L 58 L Respiratory Rate 12 13 12 Blood Pressure 128/60 133/63 144/67 H Pulse Oximetry 96 97 97 10/25/21 13:00 10/25/21 13:01 02/01/22 13:30 Pulse Rate 60 64 69 Respiratory Rate 14 16 19 Blood Pressure 153/68 H 168/75 H Pulse Oximetry 96 96 94 10/25/21 14:00 Pulse Rate 59 L Respiratory Rate 18 Blood Pressure Pulse Oximetry 97 MDM - Chest Pain Lab Data Attestation: I reviewed the patient's lab results. Result diagrams: 10/25/21 10:30 10/25/21 10:30 Labs: Lab Results 10/25/21 10/25/21 10/25/21 Range/Units 10:30 10:30 10:30 WBC 7.9 (4.5-11.0) X10^3/uL RBC 5.09 (4.5-5.9) X10^6/uL Hgb 15.0 (13.5-17.5) g/dL Hct 44.0 (41-53) % MCV 86.3 (80-100) fL MCH 29.4 (26-34) PG MCHC 34.0 (30-36) % RDW 13.8 (11.6-14.8) % Plt Count 285 (150-400) X10^3/uL Neut % (Auto) 61.8 (50-75) % Lymph % (Auto) 28.9 (25-40) % [place] % (Auto) 6.0 (3-14) % Eos % (Auto) 2.5 (2-4) % Baso % (Auto) 0.8 (0-2) % Neut # (Auto) 4900 (3871-4110) /uL Lymph # (Auto) 2300 (5256-5558) /uL [place] # (Auto) 500 (0-900) /uL Eos # (Auto) 200 (0-450) /uL Baso # (Auto) 100 (0-100) /uL Sodium 139 (137-145) mmol/L Potassium 4.2 (3.4-5.1) mmol/L Chloride 105 (98-107) mmol/L Carbon Dioxide 27 (22-32) mmol/L BUN 15 (9-20) mg/dL Creatinine 0.93 (0.66-1.25) mg/dL Estimated GFR > 60.0 (>60) mL/min BUN/Creatinine Ratio 16.1 (6-22) Glucose 200 H (70-100) mg/dL Calcium 9.1 (8.4-10.2) mg/dL Magnesium 2.1 (1.6-2.3) mg/dL Total Bilirubin 0.7 (0.2-1.3) mg/dL AST 46 (17-59) IU/L ALT 71 H (<50) IU/L Alkaline Phosphatase 97 (38-126) U/L Total Creatine Kinase 73 (55-170) U/L CK-MB (CK-2) TNP CK-MB (CK-2) Rel Index TNP Troponin I < 0.012 (0.01-0.034) ng/mL Total Protein 7.3 (6.3-8.2) g/dL Albumin 4.2 (3.5-5.0) g/dL Globulin 3.1 (1.7-4.1) g/dL Albumin/Globulin Ratio 1.4 (1.0-2.8) Lipase 80 (23-300) U/L SARS-CoV-2 (PCR) Negative (Negative) 10/25/21 Range/Units 12:50 WBC (4.5-11.0) X10^3/uL RBC (4.5-5.9) X10^6/uL Hgb (13.5-17.5) g/dL Hct (41-53) % MCV (80-100) fL MCH (26-34) PG MCHC (30-36) % RDW (11.6-14.8) % Plt Count (150-400) X10^3/uL Neut % (Auto) (50-75) % Lymph % (Auto) (25-40) % [place] % (Auto) (3-14) % Eos % (Auto) (2-4) % Baso % (Auto) (0-2) % Neut # (Auto) (0319-5519) /uL Lymph # (Auto) (8921-0095) /uL [place] # (Auto) (0-900) /uL Eos # (Auto) (0-450) /uL Baso # (Auto) (0-100) /uL Sodium (137-145) mmol/L Potassium (3.4-5.1) mmol/L Chloride (98-107) mmol/L Carbon Dioxide (22-32) mmol/L BUN (9-20) mg/dL Creatinine (0.66-1.25) mg/dL Estimated GFR (>60) mL/min BUN/Creatinine Ratio (6-22) Glucose (70-100) mg/dL Calcium (8.4-10.2) mg/dL Magnesium (1.6-2.3) mg/dL Total Bilirubin (0.2-1.3) mg/dL AST (17-59) IU/L ALT (<50) IU/L Alkaline Phosphatase (38-126) U/L Total Creatine Kinase (55-170) U/L CK-MB (CK-2) CK-MB (CK-2) Rel Index Troponin I < 0.012 (0.01-0.034) ng/mL Total Protein (6.3-8.2) g/dL Albumin (3.5-5.0) g/dL Globulin (1.7-4.1) g/dL Albumin/Globulin Ratio (1.0-2.8) Lipase (23-300) U/L SARS-CoV-2 (PCR) (Negative) Imaging Data Chest x-ray: Radiologist's Impression: [place] [address] XRay Report Signed Patient: Luke Lao MR#: [id number] : 1965 Acct:[id number] Age/Sex: 56 / M Date of Service: 10/25/21 Loc: ED Accession Number: [id number] ?? Procedure: XR chest 1V Ordering Provider: Saad Masterson D.O. PROCEDURE:? XR CHEST 1V ? INDICATIONS:? chest pain ? TECHNIQUE:? One view of the chest was acquired.? ? COMPARISON:? [facility], CR, XR CHEST 1V, 10/21/2021, 17:19.? [facility], , XR CHEST 1V, 09/25/2018, 17:30. ? FINDINGS:? ? Surgical changes and devices:? ACDF. ? Lungs and pleura:? Lungs are clear.? No pleural effusions or pneumothorax.? ? Mediastinum:? Mediastinal contours appear unchanged.? Heart size is unchanged.? ? Bones and chest wall:? No suspicious bony lesions.? Overlying soft tissues appear unremarkable.? ? IMPRESSION:? No acute cardiopulmonary abnormality. ? ? ? Dictated by: Tye Gore M.D. on 10/25/2021 at 11:39 ? ? Approved by: Tye Gore M.D. on 10/25/2021 at 11:40 ECG Data Attestation: I personally reviewed and interpreted this ECG as follows: Interpretation: Sinus rhythm Ventricular rate is 65 Right bundle branch block Normal QTC No ST T wave changes Unchanged from prior EKG MDM Narrative Medical decision making narrative: EKG unremarkable. Troponins negative x2. He did feel better after time here in the emergency department. Ambulated without issue. Is COVID negative. He was informed of the status. I do have low suspicion for ACS. I have a higher suspicion that he is fatigued from his recent COVID infection and per his admission ?over did it ?yesterday potentially causing his symptoms today. Other possibility is a vagal reaction because he stated that he did have a large loose bowel movement around the time of the event. We will hold on further workup for now. Will have patient continue to take all his medications as directed. He was given return precautions. He expressed understanding and agreement. Discharge Plan Departure Patient Disposition: Home Clinical Impression: Atypical chest pain Instructions: DI for Atypical Chest Pain Activity Restrictions/Additional Instructions: Your workup here in the emergency department is very reassuring. I do recommend that you continue all of your medications as directed. Contact your primary doctor for a follow-up. Return to the emergency department for any new or worsening symptoms. Prescriptions: No Action ondansetron 4 mg tablet,disintegrating 4 mg PO Q6-8H PRN (Reason: nausea and vomiting) Qty: 10 0RF Rx Instructions: post epidural shots cyclobenzaprine 10 mg tablet 10 mg PO TID PRN (Reason: muscle spasm) Qty: 90 0RF losartan 100 mg tablet 100 mg PO BID Qty: 135 3RF Rx Instructions: Take 50mg (1/2 tab) in morning and 50mg (1/2 tab)in evening atorvastatin 20 mg tablet 20 mg PO DAILY Qty: 90 3RF vardenafil [Levitra] 20 mg tablet 20 mg PO DAILY PRN (Reason: sexual activity) Qty: 30 3RF amlodipine 5 mg tablet 5 mg PO DAILY Qty: 90 3RF sertraline 50 mg tablet See Rx Instructions .ROUTE .COMPLEX Qty: 60 0RF Dose Instruction: TAKE ONE TABLET BY MOUTH ONE TIME DAILY Rx Instructions: TAKE ONE TABLET BY MOUTH ONE TIME DAILY allopurinol 300 mg tablet 300 mg PO DAILY Qty: 90 3RF albuterol sulfate [Ventolin HFA] 90 mcg/actuation HFA aerosol inhaler 2 puff inhalation Q6HP PRN (Reason: Shortness Of Breath) Qty: 8.5 1RF propranolol 20 mg tablet 20 mg PO BID Qty: 180 2RF hydrocodone-acetaminophen 5-325 mg tablet 1 - 2 tab PO Q6H PRN (Reason: pain) Qty: 60 0RF Rx Instructions: Take 1 to 2 tablets by mouth up to every six hours as needed for pain. pantoprazole [Protonix] 40 mg tablet,delayed release (DR/EC) 40 mg PO BID Qty: 90 0RF fluticasone propionate 50 mcg/actuation spray,suspension 2 spray NASAL DAILY Qty: 9.9 8RF Mucinex 1 tab PO DAILY 0RF dicyclomine 10 mg capsule See Rx Instructions PO QID PRN (Reason: Colitis) 0RF Rx Instructions: 1-2 tabs PO four times daily prior to meals and at bedtime; celecoxib [Celebrex] 200 mg Capsule 200 mg PO BID PRN (Reason: pain) Qty: 60 0RF famotidine 20 mg tablet 20 mg PO BID Qty: 90 0RF Referrals: Teodoro Mejía MD [Primary Care Provider] -
--- NOTE | 2021-10-25 11:03 | PC.NURSE ---
No change in pressure with nitro.
[2021-10-25 11:11] LABS: Alanine Aminotransferase 71 IU/L (<50); Albumin 4.2 g/dL (3.5-5.0); Albumin Globulin Ratio 1.4 (1.0-2.8); Alkaline Phosphatase 97 U/L (38-126); Aspartate Aminotransferase 46 IU/L (17-59); BUN Creatinine Ratio 16.1 (6-22); Bilirubin Total 0.7 mg/dL (0.2-1.3); Blood Urea Nitrogen 15 mg/dL (9-20); Calcium 9.1 mg/dL (8.4-10.2); Carbon Dioxide 27 mmol/L (22-32); Chloride 105 mmol/L (98-107); Creatine Kinase 73 U/L (55-170); Estimated Glomerular Filt Rate > 60.0 mL/min (>60); Globulin 3.1 g/dL (1.7-4.1); Glucose 200 mg/dL (70-100); HEMOLYSIS 27 (0-50); Lipase 80 U/L (23-300); Magnesium 2.1 mg/dL (1.6-2.3); Potassium 4.2 mmol/L (3.4-5.1); Sodium 139 mmol/L (137-145); Total Protein 7.3 g/dL (6.3-8.2)
[2021-10-25 11:19] LABS: COVID19 -Nasal RAPID Negative (Negative)
[2021-10-25 11:20] LABS: Troponin I < 0.012 ng/mL (0.01-0.034)
[2021-10-25 13:59] LABS: Troponin I < 0.012 ng/mL (0.01-0.034)
== END 2021-10-25 14:41 | disposition home or self-care (01) ==
PROVIDERS: Emergency Provider Emergency Medicine; PCP Family Medicine
DX: R07.89 Other chest pain (principal); R42 Dizziness and giddiness; Z20.822 Contact with and (suspected) exposure to COVID-19
CPT/HCPCS: 36415; 71045; 80053; 82550; 83690; 83735; 84484; 85025; 87635; 93005; 99284; C9803

== ENCOUNTER → 2021-11-10 15:39 | Outpatient (CLI) | payer OTHER, SELFPAY ==
[2019-09-19 13:05] VITALS: BMI 40.6
[2021-11-10 17:18] LABS: Alanine Aminotransferase 90 IU/L (<50); Albumin 4.6 g/dL (3.5-5.0); Albumin Globulin Ratio 1.5 (1.0-2.8); Alkaline Phosphatase 79 U/L (38-126); Aspartate Aminotransferase 60 IU/L (17-59); BUN Creatinine Ratio 16.5 (6-22); Bilirubin Total 0.7 mg/dL (0.2-1.3); Blood Urea Nitrogen 15 mg/dL (9-20); Calcium 8.8 mg/dL (8.4-10.2); Carbon Dioxide 28 mmol/L (22-32); Chloride 104 mmol/L (98-107); Estimated Glomerular Filt Rate > 60.0 mL/min (>60); Globulin 3.1 g/dL (1.7-4.1); Glucose 104 mg/dL (70-100); Lipase 65 U/L (23-300); Sodium 138 mmol/L (137-145); Total Protein 7.7 g/dL (6.3-8.2)
[2021-11-10 17:25] LABS: HEMOLYSIS 66 (0-50); Potassium 4.2 mmol/L (3.4-5.1)
[2021-11-10 19:58] LABS: Hemoglobin A1C% w Est Avg Glu 6.6 % (4.0-6.0)
== END ==
PROVIDERS: PCP Family Medicine; Referring Provider Family Medicine; Visit Provider Family Medicine
DX: I10 Essential (primary) hypertension (principal); K21.9 Gastro-esophageal reflux disease without esophagitis; R10.9 Unspecified abdominal pain
CPT/HCPCS: 36415; 80053; 83036; 83690

== ENCOUNTER → 2021-11-14 11:00 | Outpatient (CLI) | payer OTHER, SELFPAY ==
[2019-09-19 13:05] VITALS: BMI 40.6
[2021-11-15 08:35] LABS: Interpretation Negative (Negative)
[2021-11-18 10:14] LABS: Pancreatic Elastase, Fecal 212 (>200)
== END ==
PROVIDERS: PCP Family Medicine; Referring Provider Family Medicine; Visit Provider Family Medicine
DX: I10 Essential (primary) hypertension (principal); K21.9 Gastro-esophageal reflux disease without esophagitis; R10.9 Unspecified abdominal pain; R19.5 Other fecal abnormalities
CPT/HCPCS: 82656; 83013

== ENCOUNTER → 2021-12-12 10:08 | Outpatient (CLI) | payer OTHER, SELFPAY ==
[2019-09-19 13:05] VITALS: BMI 40.6
[2021-12-12 11:18] LABS: Hemoglobin A1C% w Est Avg Glu 6.4 % (4.0-6.0)
[2021-12-12 11:22] LABS: Alanine Aminotransferase 52 IU/L (<50); Albumin 4.3 g/dL (3.5-5.0); Albumin Globulin Ratio 1.5 (1.0-2.8); Alkaline Phosphatase 77 U/L (38-126); Aspartate Aminotransferase 35 IU/L (17-59); BUN Creatinine Ratio 18.4 (6-22); Bilirubin Total 0.8 mg/dL (0.2-1.3); Blood Urea Nitrogen 16 mg/dL (9-20); Calcium 9.1 mg/dL (8.4-10.2); Carbon Dioxide 28 mmol/L (22-32); Chloride 106 mmol/L (98-107); Estimated Glomerular Filt Rate > 60.0 mL/min (>60); Globulin 2.8 g/dL (1.7-4.1); Glucose 136 mg/dL (70-100); HEMOLYSIS < 15 (0-50); Potassium 4.3 mmol/L (3.4-5.1); Sodium 139 mmol/L (137-145); Total Protein 7.1 g/dL (6.3-8.2)
== END ==
PROVIDERS: PCP Family Medicine; Referring Provider Family Medicine; Visit Provider Family Medicine
DX: R14.0 Abdominal distension (gaseous) (principal); M54.9 Dorsalgia, unspecified; R73.9 Hyperglycemia, unspecified
CPT/HCPCS: 36415; 80053; 83036

== ENCOUNTER → 2022-01-23 13:35 | Outpatient (CLI) | payer OTHER, SELFPAY ==
[2019-09-19 13:05] VITALS: BMI 40.6
== END ==
PROVIDERS: PCP Family Medicine; Visit Provider Nurse Practitioner Family
DX: J31.2 Chronic pharyngitis (principal)
CPT/HCPCS: 87070; 87077

== ENCOUNTER → 2022-03-23 14:31 | Outpatient (CLI) | payer OTHER, SELFPAY ==
[2019-09-19 13:05] VITALS: BMI 40.6
[2022-03-23 14:56] LABS: COVID19 -Nasal RAPID Negative (Negative)
== END ==
PROVIDERS: PCP Family Medicine; Visit Provider Nurse Practitioner Family
DX: Z20.822 Contact with and (suspected) exposure to COVID-19 (principal)
CPT/HCPCS: 87635

== ENCOUNTER → 2022-07-19 13:25 | Outpatient (CLI) | payer OTHER, SELFPAY ==
[2022-06-12 14:32] VITALS: BMI 40.6
[2022-07-19 14:41] LABS: Influenza A - CEPHEID Flu A NEGATIVE (NEGATIVE); Influenza B - CEPHEID Flu B NEGATIVE (NEGATIVE); Respiratory Syncytial Virus Negative (Negative)
[2022-07-19 15:52] LABS: COVID-19 CEPHEID PCR (VTM/NP) Negative (Negative)
== END ==
PROVIDERS: PCP Family Medicine; Visit Provider Nurse Practitioner Family
DX: R05.9 Cough, unspecified (principal)
CPT/HCPCS: 0241U

== ENCOUNTER → 2022-08-15 12:53 | Outpatient (CLI) | payer OTHER, SELFPAY ==
[2022-06-12 14:32] VITALS: BMI 40.6
[2022-08-15 13:54] LABS: Influenza A - CEPHEID Flu A POSITIVE (NEGATIVE); Influenza B - CEPHEID Flu B NEGATIVE (NEGATIVE); Respiratory Syncytial Virus Negative (Negative)
[2022-08-15 14:46] LABS: COVID-19 CEPHEID 4-PLEX PCR Negative (Negative)
== END ==
PROVIDERS: PCP Family Medicine; Visit Provider Physician Assistant Medical
DX: R05.9 Cough, unspecified (principal)
CPT/HCPCS: 0241U

== ENCOUNTER → 2022-12-07 09:07 | Outpatient (CLI) | payer OTHER, SELFPAY ==
[2022-06-12 14:32] VITALS: BMI 40.6
--- NOTE | 2022-12-07 09:09 | DI.RAD.S_ITS ---
PROCEDURE: XR LUMBAR SPINE 2-3V INDICATIONS: chronic low back pain with radiculopathy TECHNIQUE: 3 views of the lumbar spine were acquired. COMPARISON: [facility], MR, MR LUMBAR SPINE WO CON, 09/19/2021, 12:01. [facility], US, US ABDOMEN COMPLETE, 12/28/2021, 13:30. [facility], CR, L-SPINE MINIMUM 4 VIEWS, 02/24/2015, 11:23. FINDINGS: Bones: 5 [id number] vertebrae are present. Minimal left convexity curvature centered at L3. 8 mm anterolisthesis L4 on L5. 2 mm retrolisthesis L3 on L4, 5 mm retrolisthesis L2 on L3. Mild-moderate multilevel degenerative changes with disc height loss, endplate spurring, and facet arthropathy. No vertebral body compression fracture identified. Soft tissues: Overlying bowel gas pattern is normal. Calcification projecting over the right lower kidney could represent a renal stone. IMPRESSION: Multilevel degenerative changes of the lumbar spine. Dictated by: Kyler Priest M.D. on 12/07/2022 at 10:25 Approved by: Kyler Priest M.D. on 12/07/2022 at 10:34
[2022-12-07 10:34] LABS: Add Manual Diff / Slide Review NO; Basophils Absolute Auto 100 /uL (0-100); Basophils Percent Auto 0.7 % (0-2); Eosinophils Absolute Auto 200 /uL (0-450); Eosinophils Percent Auto 2.7 % (2-4); Hematocrit 43.1 % (41-53); Hemoglobin 14.9 g/dL (13.5-17.5); Lymphocytes Absolute Auto 2100 /uL (1100-4500); Lymphocytes Percent Auto 27.4 % (25-40); Mean Corpuscular HGB Conc 34.6 % (30-36); Mean Corpuscular Hemoglobin 29.7 PG (26-34); Mean Corpuscular Volume 85.6 fL (80-100); Monocytes Absolute Auto 600 /uL (0-900); Monocytes Percent Auto 8.3 % (3-14); Neutrophils Absolute Auto 4700 /uL (1500-7000); Neutrophils Percent Auto 60.9 % (50-75); Platelet Count 214 X10^3/uL (150-400); Red Blood Cell Count 5.03 X10^6/uL (4.5-5.9); Red Cell Distribution Width 13.8 % (11.6-14.8); White Blood Cell Count 7.7 X10^3/uL (4.5-11.0)
[2022-12-07 11:11] LABS: HEMOLYSIS < 15 (0-50)
[2022-12-07 11:16] LABS: Alanine Aminotransferase 27 IU/L (<50); Albumin 4.1 g/dL (3.5-5.0); Albumin Globulin Ratio 1.3 (1.0-2.8); Alkaline Phosphatase 93 U/L (38-126); Aspartate Aminotransferase 23 IU/L (17-59); BUN Creatinine Ratio 21.5 (6-22); Bilirubin Total 0.7 mg/dL (0.2-1.3); Blood Urea Nitrogen 17 mg/dL (9-20); Calcium 8.4 mg/dL (8.4-10.2); Carbon Dioxide 25 mmol/L (22-32); Chloride 105 mmol/L (98-107); Cholesterol 170 mg/dL (140-199); Estimated Glomerular Filt Rate > 60 mL/min (>60); Globulin 3.1 g/dL (1.7-4.1); Glucose 124 mg/dL (70-100); HDL Cholesterol 37 mg/dL (40-60); LDL Cholesterol Calculated 108 mg/dL (<100); Sodium 138 mmol/L (137-145); Total Protein 7.2 g/dL (6.3-8.2); Triglycerides 123 mg/dL (35-150)
[2022-12-07 14:32] LABS: Creatinine Urine Random 159.1 mg/dL
[2022-12-07 14:37] LABS: Microalbumi Creatinin Ratio Ur 8.1 ug/mg CR (<30); Microalbumin Urine Random 1.3 mg/dL (0-1.6)
[2022-12-08 10:10] LABS: Prostate Specific Antigen Scrn 0.445 ng/mL (0.1-4.0)
== END ==
PROVIDERS: PCP Family Medicine; Referring Provider Family Medicine; Visit Provider Family Medicine
DX: M47.26 Other spondylosis with radiculopathy, lumbar region (principal); M48.061 Spinal stenosis, lumbar region without neurogenic claudication; M54.50 Low back pain, unspecified; Z12.5 Encounter for screening for malignant neoplasm of prostate; E78.2 Mixed hyperlipidemia; F41.9 Anxiety disorder, unspecified; I10 Essential (primary) hypertension; R73.9 Hyperglycemia, unspecified; G89.29 Other chronic pain
CPT/HCPCS: 36415; 72100; 80053; 80061; 82043; 82570; 84443; 85025; G0103

== ENCOUNTER → 2022-12-14 16:33 | Outpatient (CLI) | payer OTHER, SELFPAY ==
[2022-06-12 14:32] VITALS: BMI 40.6
--- NOTE | 2022-12-14 16:34 | DI.MRI.S_ITS ---
PROCEDURE: MR LUMBAR SPINE WO CON INDICATIONS: chronic low back pain with radiculopathy TECHNIQUE: Noncontrast sagittal T1 spin echo and T2 fast echo, sagittal STIR, and T2 fast spin echo through the lumbar spine. In cases with scoliosis, additional coronal T2 fast spin echo may be performed. COMPARISON: [facility], MR, MR LUMBAR SPINE WO CON, 09/19/2021, 12:01. FINDINGS: Image quality: Excellent. Alignment and Curvature: There is stable alignment of the lumbar spine with mild retrolisthesis of L5 on L4 as well as L5 on S1 measuring approximately 4-5 mm at both levels. Bone Marrow: Marrow is of normal overall signal. No acute vertebral body compression fractures. Spinal Cord: Conus medullaris terminates at the L2 level. Visualized cord demonstrates normal signal and size. Paraspinous Soft Tissues: No paravertebral masses. T12-L1: Mild bilateral facet arthropathy. No significant neuroforaminal or spinal canal stenosis. L1-L2: Bilateral facet arthropathy more pronounced on the right. No significant neuroforaminal or spinal canal stenosis. L2-L3: Minimal loss of disc signal intensity. Diffuse disc bulge resulting in mild effacement of the anterior thecal sac. Mild bilateral facet arthropathy. No significant spinal canal stenosis. Mild bilateral neuroforaminal stenosis. L3-L4: Redemonstration of moderate-severe spinal canal stenosis secondary to congenitally short pedicles, moderate bilateral facet arthropathy, and ligamentum flavum hypertrophy. Mild bilateral neuroforaminal stenosis. Overall findings have not significantly changed. L4-L5: Minimal loss of disc signal intensity. Redemonstration of moderate-severe spinal canal stenosis secondary to congenitally short pedicles, moderate bilateral facet arthropathy and ligamentum flavum thickening, and anterolisthesis of L4 on L5. There is moderate right and mild left bilateral neuroforaminal stenosis. L5-S1: Minimal loss of disc signal intensity. Mild loss of disc height. Relatively stable appearance of diffuse disc bulge. Mild bilateral facet arthropathy. There is effacement of anterior thecal sac as well as effacement of the right subarticular zone. Relatively stable appearance of mild right and moderate left bilateral neuroforaminal stenosis. No significant spinal canal stenosis. IMPRESSION: MRI lumbar spine without acute abnormalities. Relatively stable appearance of moderate-severe spinal canal stenosis at L3-4 and L4-5 secondary to combination of shortened pedicles and moderate facet arthropathy. Relatively stable appearance of moderate right L4-5 and left L5-S1 neuroforaminal stenosis as well as mild left L4-5 and right L5-S1 neuroforaminal stenosis. Dictated by: Sundar Smith M.D. on 12/15/2022 at 8:55 Approved by: Sundar Smith M.D. on 12/15/2022 at 9:10
== END ==
PROVIDERS: PCP Family Medicine; Referring Provider Family Medicine; Visit Provider Family Medicine
DX: M19.90 Unspecified osteoarthritis, unspecified site (principal); M54.9 Dorsalgia, unspecified; M47.816 Spondylosis without myelopathy or radiculopathy, lumbar region; M48.061 Spinal stenosis, lumbar region without neurogenic claudication
CPT/HCPCS: 72148

== ENCOUNTER → 2023-01-15 10:47 | Outpatient (CLI) | payer OTHER, SELFPAY ==
[2022-06-12 14:32] VITALS: BMI 40.6
--- NOTE | 2023-01-15 10:48 | DI.RAD.S_ITS ---
PROCEDURE: XR CHEST 2V INDICATIONS: increased shortness of breath TECHNIQUE: 2 views of the chest were acquired. COMPARISON: [facility], [place], XR CHEST 1V, 09/25/2018, 17:30. [facility], [place], CHEST 2 VIEW, 09/09/2015, 9:36. FINDINGS: Surgical changes and devices: Cervical hardware. Lungs and pleura: Lungs are clear. No pleural effusions or pneumothorax. Mediastinum: Mediastinal contours are normal. Heart size is normal. Bones and chest wall: No suspicious bony abnormalities. Soft tissues appear unremarkable. IMPRESSION: No acute cardiopulmonary abnormality. Dictated by: Tye Gore M.D. on 01/15/2023 at 11:04 Approved by: Tye Gore M.D. on 01/15/2023 at 11:06
== END ==
PROVIDERS: PCP Family Medicine; Referring Provider Physician Assistant; Visit Provider Physician Assistant
DX: R06.02 Shortness of breath (principal)
CPT/HCPCS: 71046

== ENCOUNTER → 2023-02-28 10:01 | Outpatient (CLI) | payer OTHER, SELFPAY ==
[2022-06-12 14:32] VITALS: BMI 40.6
[2023-02-28 13:01] LABS: Alanine Aminotransferase 36 IU/L (<50); Albumin Globulin Ratio 1.4 (1.0-2.8); Alkaline Phosphatase 93 U/L (38-126); Aspartate Aminotransferase 25 IU/L (17-59); BUN Creatinine Ratio 19.2 (6-22); Bilirubin Total 0.9 mg/dL (0.2-1.3); Blood Urea Nitrogen 15 mg/dL (9-20); Calcium 8.8 mg/dL (8.4-10.2); Carbon Dioxide 25 mmol/L (22-32); Chloride 104 mmol/L (98-107); Estimated Glomerular Filt Rate > 60 mL/min (>60); Globulin 2.8 g/dL (1.7-4.1); Glucose 128 mg/dL (70-100); HEMOLYSIS < 15 (0-50); Potassium 4.4 mmol/L (3.4-5.1); Sodium 138 mmol/L (137-145); Total Protein 6.8 g/dL (6.3-8.2)
[2023-03-01 01:54] LABS: x Labcorp Estim. Avg Glu (eAG) 126 mg/dL (.)
== END ==
PROVIDERS: PCP Family Medicine; Referring Provider Family Medicine; Visit Provider Family Medicine
DX: R73.9 Hyperglycemia, unspecified (principal)
CPT/HCPCS: 36415; 80053; 83036

== ENCOUNTER → 2023-11-07 13:01 | Outpatient (CLI) | payer OTHER, SELFPAY ==
[2022-06-12 14:32] VITALS: BMI 40.6
--- NOTE | 2023-11-07 13:03 | DI.MRI.S_ITS ---
PROCEDURE: MR LUMBAR SPINE WO CON INDICATIONS: Spondylolisthesis, lumbar region TECHNIQUE: Noncontrast sagittal T1 spin echo and T2 fast echo, sagittal STIR, and T2 fast spin echo through the lumbar spine. In cases with scoliosis, additional coronal T2 fast spin echo may be performed. COMPARISON: [facility], MR, MR LUMBAR SPINE WO CON, 09/19/2021, 12:01. [facility], MR, MR LUMBAR SPINE WITHOUT CONTRAST, 12/12/2017, 12:45. [facility], MR, MR LUMBAR SPINE WO CON, 12/14/2022, 16:45. [facility], CT, CT LUMBAR SPINE WO CON, 11/07/2023, 13:13. [facility], CR, XR LUMBAR SPINE 2-3V, 12/07/2022, 9:11. FINDINGS: Image quality: Excellent. Alignment and Curvature: There is mild grade 1 anterolisthesis at the L4-L5 level. Minimal retrolisthesis can be seen at L5-S1. Bone Marrow: Marrow is of normal overall signal. No acute vertebral body compression fractures. Spinal Cord: Conus medullaris terminates at the L1 level. Visualized cord demonstrates normal signal and size. Paraspinous Soft Tissues: No paravertebral masses. T12-L1: Normal appearance. L1-L2: The disc height and disk signal are well-preserved. Mild generalized disc bulge is seen. There is [id number]-no-qpanxhip right-sided and mild left-sided facet hypertrophy. Mild bilateral neural foraminal narrowing is seen. No central canal narrowing is seen. When comparison is made with the prior images, these findings are similar. L2-L3: Moderate loss of disc height is seen. Loss of disc signal is seen. Moderate disc bulge is seen, which is eccentric to the right. Mild facet joint hypertrophy is seen. There is at least moderate bilateral neural foraminal narrowing. No significant central canal narrowing can be seen. These degenerative changes are mildly progressed compared to the prior. L3-L4: The disc height and disk signal are relatively well-preserved. Moderate generalized disc bulge is seen. At least moderate facet hypertrophy is seen. There is moderate to severe bilateral neural foraminal narrowing seen, with an associated a degree of compression seen upon the exiting nerve roots. Severe central canal narrowing is seen at this level, which is exacerbated by epidural lipomatosis. These degenerative changes are progressed compared to the prior images. L4-L5: The disc height and disk signal are relatively well-preserved. Moderate disc bulge is seen, which is eccentric to the right. Prominent facet hypertrophy can be seen. There is at least moderate bilateral neural foraminal narrowing seen. There is a degree of compression seen upon the exiting nerve roots. At least moderate central canal narrowing can be seen at this level. When comparison is made with the prior images, these findings are similar. L5-S1: Moderate loss of disc height is seen. Loss of disc signal is seen. Moderate disc bulge is seen, which is eccentric to the left. Mild facet joint hypertrophy is seen. There is at least moderate bilateral neural foraminal narrowing seen. Mild central canal narrowing is seen. No significant change from the prior. IMPRESSION: Multiple levels of lumbar spine degenerative change can be seen, which are mildly progressed at L2-L3 and L3-L4 compared to the prior 2022 images. Dictated by: Mehrdad Saunders M.D. on 11/07/2023 at 13:27 Approved by: Mehrdad Saunders M.D. on 11/07/2023 at 13:34
--- NOTE | 2023-11-07 13:03 | DI.CT.S_ITS ---
PROCEDURE: CT LUMBAR SPINE WO CON INDICATIONS: Spondylolisthesis, lumbar region TECHNIQUE: Noncontrast 3 mm thick sections acquired from the T12 level to the sacrum. Sagittal and coronal reformats were constructed. For radiation dose reduction, the following was used: automated exposure control. COMPARISON: [facility], MR, MR LUMBAR SPINE WO CON, 12/14/2022, 16:45. [facility], MR, MR LUMBAR SPINE WO CON, 09/19/2021, 12:01. [facility], CT, CT KIDNEY URETER BLADDER (KUB), 02/06/2019, 15:50. [facility], MR, MR LUMBAR SPINE WO CON, 11/07/2023, 13:22. FINDINGS: Image quality: Excellent. Bones: No acute vertebral body compression fractures. No suspicious lytic or blastic bony lesions. Mild grade 1 anterolisthesis can be seen at the L4-L5 level. No associated pars defects are seen T12-L1: Normal. L1-L2: The disc height is well preserved. Mild generalized disc bulge is seen. There is moderate right-sided and mild left-sided facet hypertrophy. [id number]-[id number] bilateral neural foraminal narrowing can be seen. No central canal narrowing is seen. L2-L3: The disc height is well preserved. Moderate generalized disc bulge is seen. Moderate facet joint hypertrophy is seen. There is at least moderate bilateral neural foraminal narrowing seen. Mild central canal narrowing is seen. L3-L4: The disc height is well preserved. Moderate disc bulge is seen, which is eccentric to the left. Moderate to prominent facet hypertrophy can be seen. There is at least moderate bilateral neural foraminal narrowing. At least moderate central canal narrowing is seen. L4-L5: The disc height is well preserved. Moderate generalized disc bulge is seen. Prominent facet hypertrophy can be seen. There is at least moderate bilateral neural foraminal narrowing. At least moderate central canal narrowing is seen. L5-S1: At least moderate loss of disc height is seen. Vacuum disc phenomenon is seen at this level. Endplate irregularity and sclerosis can be seen. Moderate disc bulge is seen, which is eccentric to the left. Mild facet joint hypertrophy is seen. There is at least moderate bilateral neural foraminal narrowing. No central canal narrowing is seen. Soft tissues: No retroperitoneal masses or hematomas. Visualized aorta is normal in caliber. Atherosclerotic calcification is noted. A nonobstructing 9 mm right-sided kidney stone can be seen. A 1-2 mm nonobstructing left-sided kidney stone can also be seen. IMPRESSION: Multiple levels of lumbar spine degenerative change can be seen, which are worst inferiorly and are better demonstrated on the accompanying lumbar MRI. Additional findings: Nonobstructing right-sided 9 mm kidney stone 1-2 mm nonobstructing left-sided kidney stone Dictated by: Mehrdad Saunders M.D. on 11/07/2023 at 13:49 Approved by: Mehrdad Saunders M.D. on 11/07/2023 at 13:55
== END ==
PROVIDERS: Family Provider Family Medicine; PCP Family Medicine; Referring Provider Orthopaedic Surgery Orthopaedic Surgery of the Spine; Visit Provider Orthopaedic Surgery Orthopaedic Surgery of the Spine
DX: M47.816 Spondylosis without myelopathy or radiculopathy, lumbar region (principal); M47.817 Spondylosis without myelopathy or radiculopathy, lumbosacral region; M48.062 Spinal stenosis, lumbar region with neurogenic claudication; D17.79 Benign lipomatous neoplasm of other sites; M43.16 Spondylolisthesis, lumbar region; N20.0 Calculus of kidney
CPT/HCPCS: 72131; 72148

== ENCOUNTER → 2023-11-21 08:58 | Outpatient (CLI) | payer OTHER, SELFPAY ==
[2022-06-12 14:32] VITALS: BMI 40.6
[2023-11-21 10:04] LABS: Add Manual Diff / Slide Review NO; Basophils Absolute Auto 100 /uL (0-100); Basophils Percent Auto 0.7 % (0-2); Eosinophils Absolute Auto 300 /uL (0-450); Eosinophils Percent Auto 3.4 % (2-4); Hematocrit 43.9 % (41-53); Hemoglobin 14.9 g/dL (13.5-17.5); Lymphocytes Absolute Auto 2800 /uL (1100-4500); Lymphocytes Percent Auto 32.4 % (25-40); Mean Corpuscular HGB Conc 33.9 % (30-36); Mean Corpuscular Hemoglobin 28.9 PG (26-34); Mean Corpuscular Volume 85.5 fL (80-100); Monocytes Absolute Auto 700 /uL (0-900); Monocytes Percent Auto 8.2 % (3-14); Neutrophils Absolute Auto 4800 /uL (1500-7000); Neutrophils Percent Auto 55.3 % (50-75); Platelet Count 220 X10^3/uL (150-400); Red Blood Cell Count 5.14 X10^6/uL (4.5-5.9); Red Cell Distribution Width 13.4 % (11.6-14.8); White Blood Cell Count 8.6 X10^3/uL (4.5-11.0)
[2023-11-21 10:43] LABS: Alanine Aminotransferase 34 IU/L (<50); Albumin 4.2 g/dL (3.5-5.0); Albumin Globulin Ratio 1.5 (1.0-2.8); Alkaline Phosphatase 90 U/L (38-126); Aspartate Aminotransferase 23 IU/L (17-59); BUN Creatinine Ratio 21.2 (6-22); Bilirubin Total 0.7 mg/dL (0.2-1.3); Blood Urea Nitrogen 18 mg/dL (9-20); Calcium 8.8 mg/dL (8.4-10.2); Carbon Dioxide 24 mmol/L (22-32); Chloride 106 mmol/L (98-107); Cholesterol 170 mg/dL (140-199); Estimated Glomerular Filt Rate > 60 mL/min (>60); Globulin 2.8 g/dL (1.7-4.1); Glucose 137 mg/dL (70-100); HDL Cholesterol 40 mg/dL (40-60); HEMOLYSIS < 15 (0-50); LDL Cholesterol Calculated 93 mg/dL (<100); Potassium 4.3 mmol/L (3.4-5.1); Sodium 138 mmol/L (137-145); Triglycerides 185 mg/dL (35-150)
[2023-11-21 10:43] LABS: Creatinine Urine Random 119.9 mg/dL
[2023-11-21 10:50] LABS: Microalbumi Creatinin Ratio Ur 7.5 ug/mg CR (<30); Microalbumin Urine Random 0.9 mg/dL (0-1.6)
[2023-11-21 11:13] LABS: Prostate Specific Antigen Scrn 0.509 ng/mL (0.1-4.0)
[2023-11-21 12:10] LABS: Hemoglobin A1C% w Est Avg Glu 5.9 % (4.0-6.0)
== END ==
PROVIDERS: Family Provider Family Medicine; PCP Family Medicine; Referring Provider Family Medicine; Visit Provider Family Medicine
DX: E78.2 Mixed hyperlipidemia (principal); R73.9 Hyperglycemia, unspecified; Z12.5 Encounter for screening for malignant neoplasm of prostate
CPT/HCPCS: 36415; 80053; 80061; 82043; 82570; 83036; 85025; G0103

== ENCOUNTER → 2023-12-12 13:54 | Outpatient (CLI) | payer OTHER, SELFPAY ==
[2022-06-12 14:32] VITALS: BMI 40.6
[2023-12-12 14:40] LABS: COVID-19 CEPHEID 4-PLEX PCR Negative (Negative); Influenza A - CEPHEID Flu A NEGATIVE (NEGATIVE); Influenza B - CEPHEID Flu B NEGATIVE (NEGATIVE); Respiratory Syncytial Virus Negative (Negative)
== END ==
PROVIDERS: Family Provider Family Medicine; PCP Family Medicine; Visit Provider Nurse Practitioner Family
DX: R05.1 Acute cough (principal)
CPT/HCPCS: 0241U

== ENCOUNTER 2024-01-29 13:45 | Outpatient (RCR) | payer OTHER, SELFPAY ==
[2022-06-12 14:32] VITALS: BMI 40.6
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
--- NOTE | 2023-11-29 13:51 | PT.OPPOC ---
Physical, Occupational & Speech Therapy At [facility] Current Diagnoses Spondylolisthesis, lumbar region (11/29/23) Spinal stenosis, lumbar region with neurogenic claudication (11/29/23) Visit Care Team Role Provider Type Teodoro Mejía MD Family Provider Physician Primary Care Provider Specialty: Family Practice Address: [address] [place] [address], [address] Email: [email or web address] Venkat Chery DO Attending Provider Non-Staff Referring Provider Specialty: Orthopedic Surgery Address: [address] [place] [address] , [place], [address] Email: Plan Of Care PT-OP-T Assessment and Plan Start: 11/28/23 15:39 Freq: Status: Active Protocol: Document 11/29/23 09:39 [facility] (Rec: 11/29/23 10:35 [facility] [id number]) Physical Therapy Assessment Rehab Potential Rehabilitation Potential Good Evaluation Complexity Number of Personal Factors/Comorbidities 3 or More Number of Body Systems Impaired 4 or More Clinical Presentation at Evaluation Evolving Impairments Impairments Activity Tolerance,Balance, Functional Activities, Functional Mobility,Gait,Pain, Posture,ROM,Soft Tissue Mobility,Strength,Transfers Goals ROM Short Term Goal (STG) Pt will have improved hip mobility to allow pt to stand upright and stand for increased time w/o pain. STG Duration 01/16 Longterm Goal (LTG) Pt will have at least 50% ROM in all planes to allow for inc mobility in daily life. LTG Duration 02/21/24 strength Short Term Goal (STG) Pt will be indep w/HEP STG Duration 01/03/24 Banking Representative Goal (LTG) Pt will score at least 4/5 on all LE MMT to show improved strength in order to allow greater ease w/daily activities LTG Duration 02/20 JORGE Impairment 25/50 Short Term Goal (STG) Pt will improve JORGE to no greater than 20/50 to show improved functional mobility. STG Duration 01/03/24 Longterm Goal (LTG) Pt will improve JORGE to no greater than 15/50 to show improved functional mobility. LTG Duration 02/21/24 Assessment Summary Assessment Pt presents to PT w/chronic LBP that cont to get worse w/L hip pain and pain that shoots into L ant thigh to knee and can cause his LE to give out on him. He did have positive L slump, indicating L neural tension. He has been informed that surgery may be needed, but has to try PT first and multiple deficits are found on pt including limited back mobility, L>R hip tightness and signficiant core and LE weakness that likely contribute to pain. He has signficiantly fwd leaned posture likely related to hip flexor tightness and lack of spinal mobility. Pt would benefit from skilled PT to imrpove function. Physical Therapy Plan Frequency and Duration Frequency of Treatment 1-2x/wk Duration of treatment (weeks) 12 Plan of Care Start Date 11/29/23 Plan of Care End Date 02/21/24 Therapeutic Interventions Therapeutic Interventions Balance Training,Gait Training ,Home Exercise Program,Joint Mobilizations,Manual Therapy, Neuromuscular Re-education, Orthotic/Prosthetic Management ,Patient/Caregiver Education, Self-Care/Home Management,Soft Tissue Mobilization,Taping, Therapeutic Activities, Therapeutic Exercises Modalities Cold Pack/Ice Massage,Electric Stimulation,Hot Packs, Ultrasound Next Visit Focus/Plan Next Note Type Treatment Note Next Visit Plan start gentle supine stretching and supine core progression and seated/supine hip strengthening; manual treatment (gentle hip joint mobs, STM to hips and back) to improve mobility Plan of Care Dates Plan of Care Start Date 11/29/23 Plan of Care End Date 02/21/24 Electronically Signed by: Nafisa Heredia, PT 11/29/23 6870 If you are in agreement with this Plan of Care, please return a signed and dated copy. I have reviewed this Plan of Care and certify that the skilled therapy services above are required to meet the patient?s needs. Physician Signature Date Printed Name and Credentials Clinical Instructor Signature Printed Name and Credentials
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
== END 2024-11-20 09:29 | disposition home or self-care (01) ==
LOC: PHYS 13:45
PROVIDERS: Family Provider Family Medicine; PCP Family Medicine; Referring Provider Orthopaedic Surgery Orthopaedic Surgery of the Spine; Visit Provider Orthopaedic Surgery Orthopaedic Surgery of the Spine
DX: M43.16 Spondylolisthesis, lumbar region (principal); M48.062 Spinal stenosis, lumbar region with neurogenic claudication
CPT/HCPCS: 97110; 97140; 97162; 97535

== ENCOUNTER → 2024-08-08 16:25 | Outpatient (CLI) | payer BC, SELFPAY ==
[2022-06-12 14:32] VITALS: BMI 40.6
[2024-08-08 17:17] LABS: Influenza A - CEPHEID Flu A NEGATIVE (NEGATIVE); Influenza B - CEPHEID Flu B NEGATIVE (NEGATIVE); Respiratory Syncytial Virus Negative (Negative)
[2024-08-08 17:22] LABS: COVID-19 CEPHEID 4-PLEX PCR POSITIVE (Negative)
== END ==
PROVIDERS: Family Provider Family Medicine; PCP Family Medicine; Visit Provider Nurse Practitioner Family
DX: J02.9 Acute pharyngitis, unspecified (principal); R05.1 Acute cough
CPT/HCPCS: 0241U; 87070

== ENCOUNTER → 2024-11-24 09:58 | Outpatient (CLI) | payer OTHER, SELFPAY ==
[2022-06-12 14:32] VITALS: BMI 40.6
[2024-11-24 11:12] LABS: Add Manual Diff / Slide Review NO; Basophils Absolute Auto 100 /uL (0-100); Basophils Percent Auto 0.5 % (0-2); Eosinophils Absolute Auto 200 /uL (0-450); Eosinophils Percent Auto 2.1 % (2-4); Hematocrit 41.3 % (41-53); Hemoglobin 14.2 g/dL (13.5-17.5); Lymphocytes Absolute Auto 2200 /uL (1100-4500); Lymphocytes Percent Auto 22.1 % (25-40); Mean Corpuscular HGB Conc 34.4 % (30-36); Mean Corpuscular Hemoglobin 29.2 PG (26-34); Mean Corpuscular Volume 84.9 fL (80-100); Monocytes Absolute Auto 800 /uL (0-900); Monocytes Percent Auto 8.2 % (3-14); Neutrophils Absolute Auto 6800 /uL (1500-7000); Neutrophils Percent Auto 67.1 % (50-75); Platelet Count 335 X10^3/uL (150-400); Red Blood Cell Count 4.86 X10^6/uL (4.5-5.9); Red Cell Distribution Width 14.2 % (11.6-14.8); White Blood Cell Count 10.1 X10^3/uL (4.5-11.0)
[2024-11-24 11:25] LABS: Creatinine Urine Random 101.28 mg/dL
[2024-11-24 11:27] LABS: Hemoglobin A1C% w Est Avg Glu 5.6 % (4.0-6.0)
[2024-11-24 11:29] LABS: Microalbumin Urine Random 1.1 mg/dL (0-1.6)
[2024-11-24 11:39] LABS: Alanine Aminotransferase 26 IU/L (<50); Albumin 4.4 g/dL (3.5-5.0); Albumin Globulin Ratio 1.4 (1.0-2.8); Alkaline Phosphatase 101 U/L (38-126); Aspartate Aminotransferase 25 IU/L (17-59); BUN Creatinine Ratio 13.7 (6-22); Bilirubin Total 0.5 mg/dL (0.2-1.3); Blood Urea Nitrogen 25 mg/dL (9-20); Carbon Dioxide 22 mmol/L (22-32); Chloride 104 mmol/L (98-107); Cholesterol 171 mg/dL (140-199); Estimated Glomerular Filt Rate 42 mL/min (>60); Globulin 3.2 g/dL (1.7-4.1); Glucose 132 mg/dL (80-110); HDL Cholesterol 33 mg/dL (40-60); HEMOLYSIS < 15 (0-50); LDL Cholesterol Calculated 114 mg/dL (<100); Potassium 4.8 mmol/L (3.4-5.1); Sodium 137 mmol/L (137-145); Total Protein 7.6 g/dL (6.3-8.2); Triglycerides 120 mg/dL (35-150)
[2024-11-24 12:08] LABS: Prostate Specific Antigen Scrn 0.582 ng/mL (0.1-4.0)
[2024-11-24 12:14] LABS: TSH w/ Reflex to FT4 1.16 uIU/mL (0.47-4.68)
[2024-11-25 04:15] LABS: Apolipoprotein B 100 mg/dL (<90)
== END ==
PROVIDERS: Family Provider Family Medicine; PCP Family Medicine; Referring Provider Family Medicine; Visit Provider Family Medicine
DX: I10 Essential (primary) hypertension (principal); K21.9 Gastro-esophageal reflux disease without esophagitis; F41.9 Anxiety disorder, unspecified; M48.061 Spinal stenosis, lumbar region without neurogenic claudication; M47.816 Spondylosis without myelopathy or radiculopathy, lumbar region; E78.2 Mixed hyperlipidemia; Z12.5 Encounter for screening for malignant neoplasm of prostate
CPT/HCPCS: 36415; 80053; 80061; 82043; 82172; 82570; 83036; 84443; 85025; G0103

== ENCOUNTER → 2024-12-12 09:04 | Outpatient (CLI) | payer OTHER, SELFPAY ==
[2022-06-12 14:32] VITALS: BMI 40.6
[2024-12-12 10:43] LABS: Alanine Aminotransferase 24 IU/L (<50); Albumin 4.4 g/dL (3.5-5.0); Albumin Globulin Ratio 1.8 (1.0-2.8); Alkaline Phosphatase 103 U/L (38-126); Aspartate Aminotransferase 21 IU/L (17-59); BUN Creatinine Ratio 13.7 (6-22); Bilirubin Total 0.7 mg/dL (0.2-1.3); Blood Urea Nitrogen 26 mg/dL (9-20); Calcium 9.4 mg/dL (8.4-10.2); Carbon Dioxide 25 mmol/L (22-32); Chloride 103 mmol/L (98-107); Estimated Glomerular Filt Rate 40 mL/min (>60); Globulin 2.5 g/dL (1.7-4.1); Glucose 123 mg/dL (80-110); HEMOLYSIS < 15 (0-50); Potassium 4.7 mmol/L (3.4-5.1); Sodium 139 mmol/L (137-145); Total Protein 6.9 g/dL (6.3-8.2)
== END ==
PROVIDERS: Family Provider Family Medicine; PCP Family Medicine; Referring Provider Family Medicine; Visit Provider Family Medicine
DX: Z00.00 Encounter for general adult medical examination without abnormal findings (principal); R79.89 Other specified abnormal findings of blood chemistry; N20.0 Calculus of kidney; E78.2 Mixed hyperlipidemia; I10 Essential (primary) hypertension
CPT/HCPCS: 36415; 80053

== ENCOUNTER → 2025-01-09 10:44 | Outpatient (CLI) | payer OTHER, SELFPAY ==
[2022-06-12 14:32] VITALS: BMI 40.6
== END ==
PROVIDERS: Family Provider Family Medicine; PCP Family Medicine; Referring Provider Family Medicine; Visit Provider Family Medicine
DX: Z77.098 Contact with and (suspected) exposure to other hazardous, chiefly nonmedicinal, chemicals (principal)
CPT/HCPCS: 82441; 82570; 83921